=== PATIENT | male | born 1980 | race Caucasian/White ===

== ENCOUNTER 2017-03-02 11:29 | Inpatient (IN) | payer BC ==
[~2017-03-02] VITALS: Ht 188 cm; Wt 123.0 kg
[2017-03-02 12:13] LABS: BASO # 0.1 x10^3/uL (0.0-0.2); BASO % 1 % (0-3); EOS % 1 % (0-3); HEMATOCRIT 49.1 % (39.0-53.0); HEMOGLOBIN 16.5 g/dL (13.0-17.5); LYMPH # 0.9 x10^3/uL (1.0-4.8); LYMPH % 14 % (24-48); MEAN CORPUSCULAR HEMOGLOBIN 30 pg (25-35); MEAN CORPUSCULAR HGB CONC 34 g/dL (31-37); MEAN CORPUSCULAR VOLUME 88 fL (79-100); MONO % 8 % (0-9); NEUT % 76 % (31-73); PLATELET COUNT 197 x10^3/uL (140-400); RED BLOOD COUNT 5.55 x10^6/uL (4.30-5.70); RED CELL DISTRIBUTION WIDTH 13.3 % (11.5-14.5); WHITE BLOOD COUNT 6.6 x10^3/uL (4.0-11.0)
[2017-03-02] MEDS ORDERED: ONDANSETRON PF 4 MG/2 ML VIAL. IV ONE (12:15)
[2017-03-02] MEDS ORDERED: KETOROLAC TROMETHAMINE 30 MG/ML INJ. IV ONE (12:15)
[2017-03-02] MEDS ORDERED: MORPHINE SULFATE 4 MG/ML DISP.SYRIN. IV ONE (12:15)
--- NOTE | 2017-03-02 12:26 | PHYS DOC ---
Past Medical History Past Medical History: Other Additional Past Medical Histor: Gallstones. Past Surgical History: No Surgical History Alcohol Use: None Drug Use: None Adult General Chief Complaint Chief Complaint: ABDOMINAL PAIN HPI HPI Patient is a 36 year old male who presents with complaint of upper abdominal pain and vomiting. Patient was diagnosed yesterday with gallstones and discharged with pain medications and antiemetics. However the patient is not well controlled and the patient continues to vomit so he returns to the ED today. Patient denies any fevers, diarrhea, changes of the skin, chest pain, back pain. Review of Systems Review of Systems Constitutional: Denies fever or chills [] Respiratory: Denies cough or shortness of breath [] Cardiovascular: No chest pain GI: Yes abdominal pain, nausea, nonbloody vomiting. No bloody stools or diarrhea [] : Denies dysuria or hematuria [] Musculoskeletal: Denies back pain or joint pain [] Integument: Denies rash or skin lesions , or changes to her current skin Neurologic: Denies headache, focal weakness or sensory changes [] Endocrine: Denies polyuria or polydipsia [] All other systems reviewed and found to be negative unless otherwise specified. Current Medications Current Medications Current Medications Medications (Trade) Dose Ordered Sig/[facility] Start Time Stop Time Status Last Admin Dose Admin Ketorolac Tromethamine (Toradol) 30 mg 1X ONCE 03/02/17 12:15 03/02/17 12:16 DC 03/02/17 12:19 30 MG Morphine Sulfate 4 mg 1X ONCE 03/02/17 12:15 03/02/17 12:16 DC 03/02/17 12:21 4 MG Ondansetron HCl (Zofran) 4 mg 1X ONCE 03/02/17 12:15 03/02/17 12:16 DC 03/02/17 12:15 4 MG Allergies Allergies Allergies Coded Allergies Type Severity Reaction Last Updated Verified No Known Drug Allergies 03/02/17 No Physical Exam Physical Exam Constitutional: Well developed, well nourished, mild distress, non-toxic appearance. [] HENT: Normocephalic, atraumatic, bilateral external ears normal, oropharynx moist, no oral exudates, nose normal. [] Eyes: Anicteric EOMI, conjunctiva normal, no discharge. [] Neck: Normal range of motion, no tenderness, trachea midline, no stridor. [] Cardiovascular:Heart rate regular rhythm, no murmur, normal perfusion Lungs & Thorax: Bilateral breath sounds clear to auscultation, no tachypnea Abdomen: Bowel sounds normal, soft, no masses, no pulsatile masses. Tenderness in the upper abdominal area on the right side in the epigastric area without guarding or rebound Skin: Warm, dry, no erythema, no rash. No jaundice Back: Normal range of motion Extremities: No tenderness, no cyanosis, no clubbing, ROM intact, no edema. [] Neurologic: Alert and oriented X 3, normal motor function, no focal deficits noted. [] Psychologic: Affect normal, judgement normal, mood normal. [] Current Patient Data Vital Signs Vital Signs Date Time Temp Pulse Resp B/P (MAP) Pulse Ox O2 Delivery O2 Flow Rate FiO2 03/02/17 12:36 58 20 136/89 (105) 93 Room Air 03/02/17 11:41 97.8 97.8 Lab Values Laboratory Tests Test 03/02/17 11:40 White Blood Count 6.6 x10^3/uL (4.0-11.0) Red Blood Count 5.55 x10^6/uL (4.30-5.70) Hemoglobin 16.5 g/dL (13.0-17.5) Hematocrit 49.1 % (39.0-53.0) Mean Corpuscular Volume 88 fL (79-100) Mean Corpuscular Hemoglobin 30 pg (25-35) Mean Corpuscular Hemoglobin Concent 34 g/dL (31-37) Red Cell Distribution Width 13.3 % (11.5-14.5) Platelet Count 197 x10^3/uL (140-400) Neutrophils (%) (Auto) 76 % (31-73) H Lymphocytes (%) (Auto) 14 % (24-48) L Monocytes (%) (Auto) 8 % (0-9) Eosinophils (%) (Auto) 1 % (0-3) Basophils (%) (Auto) 1 % (0-3) Neutrophils # (Auto) 5.0 x10^3uL (1.8-7.7) Lymphocytes # (Auto) 0.9 x10^3/uL (1.0-4.8) L Monocytes # (Auto) 0.5 x10^3/uL (0.0-1.1) Eosinophils # (Auto) 0.1 x10^3/uL (0.0-0.7) Basophils # (Auto) 0.1 x10^3/uL (0.0-0.2) Sodium Level 138 mmol/L (136-145) Potassium Level 3.9 mmol/L (3.5-5.1) Chloride Level 101 mmol/L (98-107) Carbon Dioxide Level 23 mmol/L (21-32) Anion Gap 14 (6-14) Blood Urea Nitrogen 12 mg/dL (8-26) Creatinine 1.0 mg/dL (0.7-1.3) Estimated GFR (Cockcroft-Gault) 83.6 BUN/Creatinine Ratio 12 (6-20) Glucose Level 122 mg/dL (70-99) H Calcium Level 9.1 mg/dL (8.5-10.1) Total Bilirubin 7.9 mg/dL (0.2-1.0) H Aspartate Amino Transferase (AST) 185 U/L (15-37) H Alanine Aminotransferase (ALT) 706 U/L (16-63) H Alkaline Phosphatase 132 U/L (46-116) H Total Protein 7.8 g/dL (6.4-8.2) Albumin 4.1 g/dL (3.4-5.0) Albumin/Globulin Ratio 1.1 (1.0-1.7) Lipase 88521 U/L (73-393) H Laboratory Tests 03/02/17 11:40 Laboratory Tests 03/02/17 11:40 EKG EKG [] Radiology/Procedures Radiology/Procedures [] Course & Med Decision Making Course & Med Decision Making Pertinent Labs and Imaging studies reviewed. Discussed with patient, admitting team, surgery. [address] Cline surgery who recommends admission to hospitalist and consult with GI for ERCP prior to removal of GB. Also antibiotics. 1323 Pt in nad, pain well controlled. Dr Singh calls back and agrees to admit, Taylor de la garza. [] Dragon Disclaimer Dragon Disclaimer This electronic medical record was generated, in whole or in part, using a voice recognition dictation system. Departure Departure Impression: Primary Impression: Cholelithiasis Additional Impressions: Elevated liver enzymes Vomiting Disposition: ADMITTED INPATIENT Admitting Physician: Singh, Dinorah Condition: STABLE Referrals: NANCY HOANG MD (PCP) Problem Qualifiers Kapil ELLIS MD Mar 02, 2017 12:26
[2017-03-02 12:27] LABS: CALCIUM 9.1 mg/dL (8.5-10.1); GFR 83.6; POTASSIUM 3.9 mmol/L (3.5-5.1)
[2017-03-02 12:32] LABS: ALBUMIN 4.1 g/dL (3.4-5.0); ALBUMIN/GLOBULIN RATIO 1.1 (1.0-1.7); TOTAL BILIRUBIN 7.9 mg/dL (0.2-1.0); TOTAL PROTEIN 7.8 g/dL (6.4-8.2)
[2017-03-02] MEDS ORDERED: ACETAMINOPHEN 325 MG TABLET. PO PRN (13:30)
[2017-03-02] MEDS ORDERED: ONDANSETRON PF 4 MG/2 ML VIAL. IV PRN (13:30)
[2017-03-02] MEDS ORDERED: PIPERACILLIN/TAZOBACTAM 3.375 GM in IV NORMAL SALINE 50ML 50 ML IV ONE (13:45)
[2017-03-02] MEDS: MORPHINE SULFATE 4 MG/ML DISP.SYRIN. IV PRN ×2 (14:01→16:08)
[2017-03-02] MEDS ORDERED: MORPHINE SULFATE 4 MG/ML DISP.SYRIN. IM ONE (15:15)
--- NOTE | 2017-03-02 15:31 | PDOC2 ---
GI CONSULT Reason For Consult: need for ERCP HPI: HPI: 36 y/o male seen in ER w/ pending admission. H/o intermittent RUQ pain previously w/ quick resolution; however, has been constant and more severe since 02/24/17. Saw PCP yesterday, had labs, and was sent to [facility] for abd US which revealed gallstones, fatty liver, and CBD at 10mm. Planned for outpt eval w/ surgeon but came to [facility] ER today w/ ongoing abd pain and significant vomiting. Labs here show normal WBC, bili 7.9, AST 185, ALT 706, Alk Phos 132, lipase 86202. ER notes indicate previous discussion w/ surgery, consider ERCP before cholecystectomy. Received Zosyn x 1. Currently pain is in the epigastrium, can spread upward into chest and radiates to both sides to back. Denies hematemesis, diarrhea, constipation, hematochezia, melena. Fairly frequent heartburn/reflux, takes Tums PRN. Occasional ibuprofen use for headaches. No previous EGD or colonoscopy. No h/o liver or pancreas problems. Asks for more pain medication. PMH: PMH: per HPI, otherwise denies FH: Family History: Other (grandmother - WESLEY) Social History: Smoke: No ALCOHOL: none Drugs: None ROS: GEN: Denies fevers, chills, sweats HEENT: Denies blurred vision, sore throat CV: Denies chest pain RESP: Denies shortness of air, cough GI: Per HPI : Denies hematuria, dysuria ENDO: Denies weight changes NEURO: Denies confusion, dizziness MSK: Denies weakness, joint pain/swelling SKIN: Denies jaundice, pruritus Vitals: Vitals: Vital Signs Date Time Temp Pulse Resp B/P (MAP) Pulse Ox O2 Delivery O2 Flow Rate FiO2 03/02/17 15:10 57 96 Room Air 03/02/17 13:36 60 141/87 (105) 03/02/17 11:41 97.8 97.8 Labs: Labs: Laboratory Tests Test 03/02/17 11:40 White Blood Count 6.6 x10^3/uL (4.0-11.0) Red Blood Count 5.55 x10^6/uL (4.30-5.70) Hemoglobin 16.5 g/dL (13.0-17.5) Hematocrit 49.1 % (39.0-53.0) Mean Corpuscular Volume 88 fL (79-100) Mean Corpuscular Hemoglobin 30 pg (25-35) Mean Corpuscular Hemoglobin Concent 34 g/dL (31-37) Red Cell Distribution Width 13.3 % (11.5-14.5) Platelet Count 197 x10^3/uL (140-400) Neutrophils (%) (Auto) 76 % (31-73) Lymphocytes (%) (Auto) 14 % (24-48) Monocytes (%) (Auto) 8 % (0-9) Eosinophils (%) (Auto) 1 % (0-3) Basophils (%) (Auto) 1 % (0-3) Neutrophils # (Auto) 5.0 x10^3uL (1.8-7.7) Lymphocytes # (Auto) 0.9 x10^3/uL (1.0-4.8) Monocytes # (Auto) 0.5 x10^3/uL (0.0-1.1) Eosinophils # (Auto) 0.1 x10^3/uL (0.0-0.7) Basophils # (Auto) 0.1 x10^3/uL (0.0-0.2) Sodium Level 138 mmol/L (136-145) Potassium Level 3.9 mmol/L (3.5-5.1) Chloride Level 101 mmol/L (98-107) Carbon Dioxide Level 23 mmol/L (21-32) Anion Gap 14 (6-14) Blood Urea Nitrogen 12 mg/dL (8-26) Creatinine 1.0 mg/dL (0.7-1.3) Estimated GFR (Cockcroft-Gault) 83.6 BUN/Creatinine Ratio 12 (6-20) Glucose Level 122 mg/dL (70-99) Calcium Level 9.1 mg/dL (8.5-10.1) Total Bilirubin 7.9 mg/dL (0.2-1.0) Aspartate Amino Transf (AST/SGOT) 185 U/L (15-37) Alanine Aminotransferase (ALT/SGPT) 706 U/L (16-63) Alkaline Phosphatase 132 U/L (46-116) Total Protein 7.8 g/dL (6.4-8.2) Albumin 4.1 g/dL (3.4-5.0) Albumin/Globulin Ratio 1.1 (1.0-1.7) Lipase 80404 U/L (73-393) Allergies: Coded Allergies: No Known Drug Allergies (Unverified , 03/02/17) Medications: Current Medications Medications (Trade) Dose Ordered Sig/Vladimir Route PRN Reason Start Time Stop Time Status Last Admin Dose Admin Ketorolac Tromethamine (Toradol) 30 mg 1X ONCE IV 03/02/17 12:15 03/02/17 12:16 DC 03/02/17 12:19 Morphine Sulfate 4 mg 1X ONCE IV 03/02/17 12:15 03/02/17 12:16 DC 03/02/17 12:21 Ondansetron HCl (Zofran) 4 mg 1X ONCE IV 03/02/17 12:15 03/02/17 12:16 DC 03/02/17 12:15 Piperacillin Sod/ Tazobactam Sod 3.375 gm/Sodium Chloride 50 ml @ 100 mls/hr 1X ONCE IV 03/02/17 13:45 03/02/17 14:14 DC 03/02/17 13:50 Morphine Sulfate 4 mg PRN Q2HR PRN IV PAIN 03/02/17 13:30 03/03/17 13:29 03/02/17 14:01 Imaging: Imaging: Per HPI. PE: GEN: NAD HEENT: Atraumatic, +faint scleral icterus LUNGS: CTAB anteriorly HEART: RRR ABD: BS quiet, soft, epigastric and RUQ discomfort to light palpation EXTREMITY: No edema SKIN: No rashes NEURO/PSYCH: A & O 3 A/P: A/P: Upper abd pain w/ n/v Hyperbilirubinemia, elevated lipase Cholelithiasis, dilated CBD (10mm) -on US @ [facility] 03/01 -- D/w Dr. Plunkett - concern for choledocholithiasis, recheck labs in a.m. w/ possible ERCP w/ sphincterotomy/stone extraction tomorrow afternoon. EZE HERMOSILLO Mar 02, 2017 15:31
[2017-03-02 15:40] VITALS: BP 117/68
[2017-03-02] MEDS ORDERED: fentaNYL PF VIAL 100 MCG/2 ML VIAL IV PRN (16:45)
[2017-03-02] MEDS ORDERED: oxyCODONE IR 5 MG TABLET PO PRN (16:45)
[2017-03-02] MEDS ORDERED: SALIVA STIMULANT AGENT 44ML SPRAY BOTTLE. PO PRN (17:00)
[2017-03-02] MEDS ORDERED: KETOROLAC TROMETHAMINE 30 MG/ML INJ. IV PRN (17:00)
--- NOTE | 2017-03-02 17:01 | PDOC1 ---
History and Physical Date of Admission Date of Admission DATE: 03/02/17 TIME: 16:56 Identification/Chief Complaint Chief Complaint abd pain Problems: Source Source: Chart review, Patient History of Present Illness History of Present Illness Mr. Gomez, is a 36 y/o male admitted with acute and severe abd pain. recent intermittent RUQ pain for a few days, also worsening and more severe since . concerning labs at [facility] and US which revealed gallstones, fatty liver, and CBD at 10mm. Dr. Cline was alerted, but pt vomited and severe pain. Labs concernign for obstruction, CBD tone pain severe, 10, then 7/10 with IV pain meds no prior PMH, he works in [employer] Past Medical History Cardiovascular: No pertinent hx Pulmonary: No pertinent hx GI: No pertinent hx Heme/Onc: No pertinent hx Hepatobiliary: No pertinent hx Psych: No pertinent hx Rheumatologic: No pertinent hx Past Surgical History Past Surgical History: No pertinent history Family History Family History: No Significant Social History Smoke: No ALCOHOL: none Drugs: None Current Problem List Problem List Problems Medical Problems: (1) Cholelithiasis Status: Acute (2) Elevated liver enzymes Status: Acute (3) Vomiting Status: Acute Problems: Current Medications Current Medications Current Medications Ketorolac Tromethamine (Toradol) 30 mg 1X ONCE IV Last administered on 12:19; Start 03/02/17 at 12:15; Stop 03/02/17 at 12:16; Status DC Morphine Sulfate 4 mg 1X ONCE IV Last administered on 03/02/17 12:21; Start 03/02/17 at 12:15; Stop 03/02/17 at 12:16; Status DC Ondansetron HCl (Zofran) 4 mg 1X ONCE IV Last administered on 03/02/17 12:15 ; Start 03/02/17 at 12:15; Stop 03/02/17 at 12:16; Status DC Piperacillin Sod/ Tazobactam Sod 3.375 gm/Sodium Chloride 50 ml @ 100 mls/hr 1X ONCE IV Last administered on 03/02/17 13:50; Start 03/02/17 at 13:45; Stop 03/02/17 at 14:14; Status DC Ondansetron HCl (Zofran) 4 mg PRN Q8HRS PRN IV NAUSEA/VOMITING Last administered on 03/02/17 16:14; Start 03/02/17 at 13:30; Stop 03/03/17 at 13:29 Morphine Sulfate 4 mg PRN Q2HR PRN IV PAIN Last administered on 03/02/17 16:08 ; Start 03/02/17 at 13:30; Stop 03/03/17 at 13:29 Acetaminophen (Tylenol) 650 mg PRN Q4HRS PRN PO FEVER; Start 03/02/17 at 13:30 ; Stop 03/03/17 at 13:29 Morphine Sulfate 4 mg 1X ONCE IM ; Start 03/02/17 at 15:15; Stop 03/02/17 at 15 :16; Status DC Famotidine (Pepcid) 20 mg QHS IVP ; Start 03/02/17 at 21:00 Piperacillin Sod/ Tazobactam Sod 3.375 gm/Sodium Chloride 50 ml @ 100 mls/hr Q6HRS IV ; Start 03/02/17 at 18:00 Fentanyl Citrate (Fentanyl 2ml Vial) 50 mcg PRN Q2HR PRN IV PAIN; Start at 16:45 Oxycodone HCl (Roxicodone) 5 mg PRN Q6HRS PRN PO PAIN; Start 03/02/17 at 16:45 Allergies Allergies: Coded Allergies: No Known Drug Allergies (Unverified , 03/02/17) ROS General: YES: Appetite, No: Chills, Night Sweats, Fatigue, Malaise, Other PSYCHOLOGICAL ROS: No: Anxiety, Behavioral Disorder, Concentration difficultie , Decreased libido, Depression, Disorientation, Hallucinations, Hostility, Irritablity, Memory difficulties, Mood Swings, Obsessive thoughts, Physical abuse, Sexual abuse, Sleep disturbances, Suicidal ideation, Other Eyes: No Blurry vision, No Decreased vision, No Double vision, No Dry eyes, No Excessive tearing, No Eye Pain, No Itchy Eyes, No Loss of vision, No Photophobia , No Scotomata, No Uses contacts, No Uses glasses, No Other HEENT: No: Heacaches, Visual Changes, Hearing change, Nasal congestion, Nasal discharge, Oral lesions, Sinus pain, Sore Throat, Epistaxis, Sneezing, Snoring, Tinnitus, Vertigo, Vocal changes, Other Respiratory: No: Cough, Hemoptysis, Orthopnea, Pleuritic Pain, Shortness of breath, SOB with excertion, Sputum Changes, Stridor, Tachypnea, Wheezing, Other Cardiovascular: No Chest Pain, No Palpitations, No Orthopnea, No Paroxysmal Noc. Dyspnea, No Edema, No Lt Headedness, No Other Gastrointestinal: Yes Nausea, Yes Abdominal Pain, Yes Other (decreased stool, but less PO intake), No Vomiting, No Diarrhea, No Constipation, No Melena, No Hematochezia Genitourinary: No Dysuria, No Frequency, No Incontinence, No Hematuria, No Retention, No Discharge, No Urgency, No Pain, No Flank Pain, No Other, No , No , No , No , No , No , No Musculoskeletal: No Gait Disturbance, No Joint Pain, No Joint Stiffness, No Joint Swelling, No Muscle Pain, No Muscular Weakness, No Pain In:, No Swelling In:, No Other Neurological: No Behavorial Changes, No Bowel/Bladder ControlChng, No Confusion , No Dizziness, No Gait Disturbance, No Headaches, No Impaired Coord/balance, No Memory Loss, No Numbness/Tingling, No Seizures, No Speech Problems, No Tremors, No Visual Changes, No Weakness, No Other Skin: No Dry Skin, No Eczema, No Hair Changes, No Lumps, No Mole Changes, No Mottling, No Nail Changes, No Pruritus, No Rash, No Skin Lesion Changes, No Other, No Acne Physical Exam General: Alert, Oriented X3, Cooperative, mild distress HEENT: EOMI, Mucous membr. moist/pink Lungs: Normal air movement Heart: no gallops, no murmurs Abdomen: Normal bowel sounds, Soft (tender) Extremities: No clubbing, No edema Skin: No breakdown, No significant lesion Neuro: Sensation intact Vitals Vitals Vital Signs Date Time Temp Pulse Resp B/P (MAP) Pulse Ox O2 Delivery O2 Flow Rate FiO2 03/02/17 16:39 18 Room Air 03/02/17 15:40 97.9 76 117/68 (84) 95 97.9 Labs Labs Laboratory Tests Test 03/02/17 11:40 White Blood Count 6.6 x10^3/uL (4.0-11.0) Red Blood Count 5.55 x10^6/uL (4.30-5.70) Hemoglobin 16.5 g/dL (13.0-17.5) Hematocrit 49.1 % (39.0-53.0) Mean Corpuscular Volume 88 fL (79-100) Mean Corpuscular Hemoglobin 30 pg (25-35) Mean Corpuscular Hemoglobin Concent 34 g/dL (31-37) Red Cell Distribution Width 13.3 % (11.5-14.5) Platelet Count 197 x10^3/uL (140-400) Neutrophils (%) (Auto) 76 % (31-73) Lymphocytes (%) (Auto) 14 % (24-48) Monocytes (%) (Auto) 8 % (0-9) Eosinophils (%) (Auto) 1 % (0-3) Basophils (%) (Auto) 1 % (0-3) Neutrophils # (Auto) 5.0 x10^3uL (1.8-7.7) Lymphocytes # (Auto) 0.9 x10^3/uL (1.0-4.8) Monocytes # (Auto) 0.5 x10^3/uL (0.0-1.1) Eosinophils # (Auto) 0.1 x10^3/uL (0.0-0.7) Basophils # (Auto) 0.1 x10^3/uL (0.0-0.2) Sodium Level 138 mmol/L (136-145) Potassium Level 3.9 mmol/L (3.5-5.1) Chloride Level 101 mmol/L (98-107) Carbon Dioxide Level 23 mmol/L (21-32) Anion Gap 14 (6-14) Blood Urea Nitrogen 12 mg/dL (8-26) Creatinine 1.0 mg/dL (0.7-1.3) Estimated GFR (Cockcroft-Gault) 83.6 BUN/Creatinine Ratio 12 (6-20) Glucose Level 122 mg/dL (70-99) Calcium Level 9.1 mg/dL (8.5-10.1) Total Bilirubin 7.9 mg/dL (0.2-1.0) Aspartate Amino Transf (AST/SGOT) 185 U/L (15-37) Alanine Aminotransferase (ALT/SGPT) 706 U/L (16-63) Alkaline Phosphatase 132 U/L (46-116) Total Protein 7.8 g/dL (6.4-8.2) Albumin 4.1 g/dL (3.4-5.0) Albumin/Globulin Ratio 1.1 (1.0-1.7) Lipase 42589 U/L (73-393) Laboratory Tests Test 03/02/17 11:40 White Blood Count 6.6 x10^3/uL (4.0-11.0) Red Blood Count 5.55 x10^6/uL (4.30-5.70) Hemoglobin 16.5 g/dL (13.0-17.5) Hematocrit 49.1 % (39.0-53.0) Mean Corpuscular Volume 88 fL (79-100) Mean Corpuscular Hemoglobin 30 pg (25-35) Mean Corpuscular Hemoglobin Concent 34 g/dL (31-37) Red Cell Distribution Width 13.3 % (11.5-14.5) Platelet Count 197 x10^3/uL (140-400) Neutrophils (%) (Auto) 76 % (31-73) Lymphocytes (%) (Auto) 14 % (24-48) Monocytes (%) (Auto) 8 % (0-9) Eosinophils (%) (Auto) 1 % (0-3) Basophils (%) (Auto) 1 % (0-3) Neutrophils # (Auto) 5.0 x10^3uL (1.8-7.7) Lymphocytes # (Auto) 0.9 x10^3/uL (1.0-4.8) Monocytes # (Auto) 0.5 x10^3/uL (0.0-1.1) Eosinophils # (Auto) 0.1 x10^3/uL (0.0-0.7) Basophils # (Auto) 0.1 x10^3/uL (0.0-0.2) Sodium Level 138 mmol/L (136-145) Potassium Level 3.9 mmol/L (3.5-5.1) Chloride Level 101 mmol/L (98-107) Carbon Dioxide Level 23 mmol/L (21-32) Anion Gap 14 (6-14) Blood Urea Nitrogen 12 mg/dL (8-26) Creatinine 1.0 mg/dL (0.7-1.3) Estimated GFR (Cockcroft-Gault) 83.6 BUN/Creatinine Ratio 12 (6-20) Glucose Level 122 mg/dL (70-99) Calcium Level 9.1 mg/dL (8.5-10.1) Total Bilirubin 7.9 mg/dL (0.2-1.0) Aspartate Amino Transf (AST/SGOT) 185 U/L (15-37) Alanine Aminotransferase (ALT/SGPT) 706 U/L (16-63) Alkaline Phosphatase 132 U/L (46-116) Total Protein 7.8 g/dL (6.4-8.2) Albumin 4.1 g/dL (3.4-5.0) Albumin/Globulin Ratio 1.1 (1.0-1.7) Lipase 90374 U/L (73-393) VTE Prophylaxis Ordered VTE Prophylaxis Devices: Yes VTE Pharmacological Prophylaxi: Contraindicated Assessment/Plan Assessment/Plan Acute cholecystitis concern for choledocholithiasis, GI consult consider ERCP gen surg consult to follow obesity, BMI 34 acute abd pain, req. IV pain meds pancreatitis KRISTIAN GÓMEZ MD Mar 02, 2017 17:01
[2017-03-02] MEDS ORDERED: MORPHINE SULFATE 4 MG/ML DISP.SYRIN. IV PRN (17:15)
[2017-03-02] MEDS: POTASSIUM CL 20MEQ D5-0.45NACL 1,000 ML IV SCH (18:03)
[2017-03-02] MEDS: PIPERACILLIN/TAZOBACTAM 3.375 GM in IV NORMAL SALINE 50ML 50 ML IV SCH (18:18)
[2017-03-02 19:00] VITALS: BP 137/79
[2017-03-02] MEDS: fentaNYL PF VIAL 100 MCG/2 ML VIAL IV PRN ×2 (19:28→22:02)
[2017-03-02] MEDS ORDERED: diphenhydrAMINE 50 MG/ML VIAL IVP PRN (21:30)
[2017-03-02] MEDS: FAMOTIDINE 20 MG/2 ML VIAL IVP SCH (22:03)
[2017-03-02 23:00] VITALS: BP 129/74
--- NOTE | 2017-03-03 00:50 | ACF ---
Admission Forms Criteria GALLBLADDER OR BILE DUCT INFLAMMATION OR STONE Clinical Indications for Admission to Inpatient Care ( ho-chunk/check or initial the applicable condition/criteria) Admission is indicated for patients with ANY ONE of the following(1)(2)(3)(4)(5) (6): I. Acute cholecystitis as indicated by ALL of the following: a) Right upper quadrant pain, mass, or tenderness b) Systemic signs of inflammation indicated by ANY ONE of the following: i) Fever ii) C-reactive protein level greater than 10 mg/L (95 nmol/L) iii) White blood cell count greater than 10,000/mm3 (10 x10 9/L ) or less than 4000/mm3 (4 x10 9/L) II. Acute cholangitis as indicated by ALL of the following(9)(10): a) Systemic signs of inflammation indicated by ANY ONE of the following: i) Fever ii) C-reactive protein level greater than 10 mg/L (95 nmol/L) iii) White blood cell count greater than 10,000/mm3 (10 x109/L ) or less than 4000/mm3 (4 x109/L) b) Evidence of common bile duct disease indicated by ANY ONE of the following: [ ]i) Total serum bilirubin level greater than or equal to 2 mg/dL (34 micromoles/L) [ ]ii) Liver function test (alkaline phosphatase (ALP), r- glutamyltransferase (GGT), aspartate aminotransferase (AST), or alanine aminotransferase (ALT)) greater than 1.5 times the upper limit of normal[B] [ ]iii) Hepatobiliary imaging showing biliary dilatation or evidence of etiology (eg, stricture, stone, previously placed stent) [X]III. Inpatient admission[c] required rather than observation care (Also use Gallbladder or Bile Duct Inflammation or Stone: Observation Care as appropriate) because of ANY ONE of the following( 11): a) Common bile duct obstruction diagnosed (eg, by imaging) b) Vomiting that is severe or persistent c) Dehydration that is severe or persistent d) Hemodynamic instability [X] e) Severe pain requiring acute inpatient management f) Absent bowel sounds with complete ileus(12) g) Signs of intestinal obstruction or peritonitis[D] h) Percutaneous or open drainage (eg, abscess, biliary tract) procedures i) Other condition, treatment or monitoring requiring inpatient admission j) High fever or infection requiring inpatient admission as indicated by ANY ONE of the following (13): i) Appropriate outpatient or observation care antimicrobial Treatment. unavailable, not effective, or not feasible ii) Documented bacteremia iii) Temperature greater than 104.9 degrees F (40.5 degrees C) ( oral) iv) Temperature greater than 103.1 degrees F (39.5 degrees C) ( oral) or less than 96.8 degrees F (36 degrees C) (rectal) that does not respond to all emergency treatment measures The original [facility] content created by [facility] has been revised. The portions of the content which have been revised are identified through the use of italic text or in bold, and [facility] has neither reviewed nor approved the modified material. All other unmodified content is copyright [facility]. Please see references footnoted in the original [facility] edition 2016 Admission Criteria Met?: Yes PAULINO LOPEZ Mar 03, 2017 00:50
[2017-03-03] MEDS: PIPERACILLIN/TAZOBACTAM 3.375 GM in IV NORMAL SALINE 50ML 50 ML IV SCH ×4 (01:32→17:46)
[2017-03-03] MEDS: fentaNYL PF VIAL 100 MCG/2 ML VIAL IV PRN ×5 (01:33→15:19)
[2017-03-03 03:00] VITALS: BP 115/68
[2017-03-03] MEDS: POTASSIUM CL 20MEQ D5-0.45NACL 1,000 ML IV SCH ×3 (04:40→17:45)
[2017-03-03 04:56] LABS: BASO % 0 % (0-3); EOS % 0 % (0-3); HEMATOCRIT 45.3 % (39.0-53.0); LYMPH # 0.8 x10^3/uL (1.0-4.8); LYMPH % 11 % (24-48); MEAN CORPUSCULAR HEMOGLOBIN 31 pg (25-35); MEAN CORPUSCULAR HGB CONC 35 g/dL (31-37); MEAN CORPUSCULAR VOLUME 87 fL (79-100); MONO % 8 % (0-9); NEUT % 81 % (31-73); PLATELET COUNT 189 x10^3/uL (140-400); RED BLOOD COUNT 5.22 x10^6/uL (4.30-5.70); RED CELL DISTRIBUTION WIDTH 13.4 % (11.5-14.5); WHITE BLOOD COUNT 7.5 x10^3/uL (4.0-11.0)
[2017-03-03 05:14] LABS: ALBUMIN 3.7 g/dL (3.4-5.0); CALCIUM 8.8 mg/dL (8.5-10.1); CREATININE 1.2 mg/dL (0.7-1.3); GFR 67.8; POTASSIUM 3.9 mmol/L (3.5-5.1); TOTAL BILIRUBIN 2.8 mg/dL (0.2-1.0); TOTAL PROTEIN 7.3 g/dL (6.4-8.2)
[2017-03-03 07:00] VITALS: BP 128/79
--- NOTE | 2017-03-03 08:45 | PDOC2 ---
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 Pain does radiate to his back. Aggravated by late meals/spicy foods. He reports intermittent attacks for years, however they typically resolve in a day or so without intervention. This time significantly worse and did not improve. US at [facility] revealed cholelithiasis, was sent home with output FU. Could not wait, came to ER here Past Medical History Cardiovascular: No pertinent hx Pulmonary: No pertinent hx GI: No pertinent hx Heme/Onc: No pertinent hx Hepatobiliary: No pertinent hx Psych: No pertinent hx Rheumatologic: No pertinent hx Past Surgical History Past Surgical History: No pertinent history Family History Family History: No Significant Social History No ALCOHOL: none Drugs: None Lives: Alone Current Problem List Problem List Problems Medical Problems: (1) Cholelithiasis Status: Acute (2) Elevated liver enzymes Status: Acute (3) Vomiting Status: Acute Current Medications Current Medications Current Medications Ketorolac Tromethamine (Toradol) 30 mg 1X ONCE IV Last administered on 12:19; Start 03/02/17 at 12:15; Stop 03/02/17 at 12:16; Status DC Morphine Sulfate 4 mg 1X ONCE IV Last administered on 03/02/17 12:21; Start 03/02/17 at 12:15; Stop 03/02/17 at 12:16; Status DC Ondansetron HCl (Zofran) 4 mg 1X ONCE IV Last administered on 03/02/17 12:15 ; Start 03/02/17 at 12:15; Stop 03/02/17 at 12:16; Status DC Piperacillin Sod/ Tazobactam Sod 3.375 gm/Sodium Chloride 50 ml @ 100 mls/hr 1X ONCE IV Last administered on 03/02/17 13:50; Start 03/02/17 at 13:45; Stop 03/02/17 at 14:14; Status DC Ondansetron HCl (Zofran) 4 mg PRN Q8HRS PRN IV NAUSEA/VOMITING Last administered on 03/02/17 16:14; Start 03/02/17 at 13:30; Stop 03/03/17 at 13:29 Morphine Sulfate 4 mg PRN Q2HR PRN IV PAIN Last administered on 03/02/17 16:08 ; Start 03/02/17 at 13:30; Stop 03/02/17 at 17:02; Status DC Acetaminophen (Tylenol) 650 mg PRN Q4HRS PRN PO FEVER; Start 03/02/17 at 13:30 ; Stop 03/03/17 at 13:29 Morphine Sulfate 4 mg 1X ONCE IM ; Start 03/02/17 at 15:15; Stop 03/02/17 at 15 :16; Status DC Famotidine (Pepcid) 20 mg QHS IVP Last administered on 03/02/17 22:03; Start 03/02/17 at 21:00 Piperacillin Sod/ Tazobactam Sod 3.375 gm/Sodium Chloride 50 ml @ 100 mls/hr Q6HRS IV Last administered on 03/03/17 06:40; Start 03/02/17 at 18:00 Fentanyl Citrate (Fentanyl 2ml Vial) 50 mcg PRN Q2HR PRN IV PAIN; Start at 16:45; Stop 03/02/17 at 16:55; Status DC Oxycodone HCl (Roxicodone) 5 mg PRN Q6HRS PRN PO PAIN; Start 03/02/17 at 16:45 Fentanyl Citrate (Fentanyl 2ml Vial) 75 mcg PRN Q2HR PRN IV PAIN Last administered on 03/03/17 07:23; Start 03/02/17 at 17:00 Ketorolac Tromethamine (Toradol) 30 mg PRN Q8HRS PRN IV PAIN Last administered on 03/02/17 18:04; Start 03/02/17 at 17:00; Stop 03/07/17 at 16:59 Potassium Chloride/Dextrose/ Sod Cl 1,000 ml @ 125 mls/hr Q8H IV Last administered on 03/03/17 04:40; Start 03/02/17 at 17:30 Saliva Substitute (Biotene Moisturizing Mouth) 2 spray PRN Q15MIN PRN PO DRY MOUTH; Start 8/30/17 at 17:00 Morphine Sulfate 6 mg PRN Q2HR PRN IV PAIN; Start 03/02/17 at 17:15 Diphenhydramine HCl (Benadryl) 25 mg PRN Q6HRS PRN IVP ITCHING; Start 03/02/17 at 21:30 Allergies Allergies: Coded Allergies: No Known Drug Allergies (Unverified , 03/03/17) ROS General: YES: Chills, Appetite (loss), Other (low grade fevers ) PSYCHOLOGICAL ROS: No: Anxiety, Depression Eyes: No Blurry vision, No Double vision HEENT: No: Heacaches, Sore Throat Hematological and Lymphatic: No: Bleeding Problems, Blood Clots Respiratory: No: Cough, Shortness of breath Cardiovascular: No Chest Pain, No Palpitations Gastrointestinal: Yes Other Genitourinary: No Dysuria, No Hematuria Musculoskeletal: Yes Pain In: (back), No Joint Pain Neurological: No Confusion, No Numbness/Tingling Skin: No Pruritus, No Rash Physical Exam General: Alert, Oriented X3, Cooperative, No acute distress HEENT: PERRLA, Mucous membr. moist/pink Lungs: Clear to auscultation, Normal air movement Heart: Regular rate, Normal S1, Normal S2, No murmurs Abdomen: Soft, Other (ND, moderate epigastric tenderness, also mildy tender to LUQ and RUQ) Extremities: No clubbing, No cyanosis Skin: No rashes, No breakdown Neuro: Normal gait, Normal speech Psych/Mental Status: Mental status NL, Mood NL MUSCULOSKELETAL: No deformity, No swelling Vitals VITALS Vital Signs Date Time Temp Pulse Resp B/P (MAP) Pulse Ox O2 Delivery O2 Flow Rate FiO2 03/03/17 07:23 16 96 03/03/17 07:00 99.7 86 128/79 (95) Room Air 99.7 Labs Labs Laboratory Tests Test 03/02/17 11:40 03/03/17 04:47 White Blood Count 6.6 x10^3/uL (4.0-11.0) 7.5 x10^3/uL (4.0-11.0) Red Blood Count 5.55 x10^6/uL (4.30-5.70) 5.22 x10^6/uL (4.30-5.70) Hemoglobin 16.5 g/dL (13.0-17.5) 16.0 g/dL (13.0-17.5) Hematocrit 49.1 % (39.0-53.0) 45.3 % (39.0-53.0) Mean Corpuscular Volume 88 fL (79-100) 87 fL (79-100) Mean Corpuscular Hemoglobin 30 pg (25-35) 31 pg (25-35) Mean Corpuscular Hemoglobin Concent 34 g/dL (31-37) 35 g/dL (31-37) Red Cell Distribution Width 13.3 % (11.5-14.5) 13.4 % (11.5-14.5) Platelet Count 197 x10^3/uL (140-400) 189 x10^3/uL (140-400) Neutrophils (%) (Auto) 76 % (31-73) 81 % (31-73) Lymphocytes (%) (Auto) 14 % (24-48) 11 % (24-48) Monocytes (%) (Auto) 8 % (0-9) 8 % (0-9) Eosinophils (%) (Auto) 1 % (0-3) 0 % (0-3) Basophils (%) (Auto) 1 % (0-3) 0 % (0-3) Neutrophils # (Auto) 5.0 x10^3uL (1.8-7.7) 6.1 x10^3uL (1.8-7.7) Lymphocytes # (Auto) 0.9 x10^3/uL (1.0-4.8) 0.8 x10^3/uL (1.0-4.8) Monocytes # (Auto) 0.5 x10^3/uL (0.0-1.1) 0.6 x10^3/uL (0.0-1.1) Eosinophils # (Auto) 0.1 x10^3/uL (0.0-0.7) 0.0 x10^3/uL (0.0-0.7) Basophils # (Auto) 0.1 x10^3/uL (0.0-0.2) 0.0 x10^3/uL (0.0-0.2) Sodium Level 138 mmol/L (136-145) 139 mmol/L (136-145) Potassium Level 3.9 mmol/L (3.5-5.1) 3.9 mmol/L (3.5-5.1) Chloride Level 101 mmol/L (98-107) 102 mmol/L (98-107) Carbon Dioxide Level 23 mmol/L (21-32) 27 mmol/L (21-32) Anion Gap 14 (6-14) 10 (6-14) Blood Urea Nitrogen 12 mg/dL (8-26) 16 mg/dL (8-26) Creatinine 1.0 mg/dL (0.7-1.3) 1.2 mg/dL (0.7-1.3) Estimated GFR (Cockcroft-Gault) 83.6 67.8 BUN/Creatinine Ratio 12 (6-20) 13 (6-20) Glucose Level 122 mg/dL (70-99) 101 mg/dL (70-99) Calcium Level 9.1 mg/dL (8.5-10.1) 8.8 mg/dL (8.5-10.1) Total Bilirubin 7.9 mg/dL (0.2-1.0) 2.8 mg/dL (0.2-1.0) Aspartate Amino Transf (AST/SGOT) 185 U/L (15-37) 111 U/L (15-37) Alanine Aminotransferase (ALT/SGPT) 706 U/L (16-63) 562 U/L (16-63) Alkaline Phosphatase 132 U/L (46-116) 121 U/L (46-116) Total Protein 7.8 g/dL (6.4-8.2) 7.3 g/dL (6.4-8.2) Albumin 4.1 g/dL (3.4-5.0) 3.7 g/dL (3.4-5.0) Albumin/Globulin Ratio 1.1 (1.0-1.7) 1.0 (1.0-1.7) Lipase 30421 U/L (73-393) Laboratory Tests Test 03/02/17 11:40 03/03/17 04:47 White Blood Count 6.6 x10^3/uL (4.0-11.0) 7.5 x10^3/uL (4.0-11.0) Red Blood Count 5.55 x10^6/uL (4.30-5.70) 5.22 x10^6/uL (4.30-5.70) Hemoglobin 16.5 g/dL (13.0-17.5) 16.0 g/dL (13.0-17.5) Hematocrit 49.1 % (39.0-53.0) 45.3 % (39.0-53.0) Mean Corpuscular Volume 88 fL (79-100) 87 fL (79-100) Mean Corpuscular Hemoglobin 30 pg (25-35) 31 pg (25-35) Mean Corpuscular Hemoglobin Concent 34 g/dL (31-37) 35 g/dL (31-37) Red Cell Distribution Width 13.3 % (11.5-14.5) 13.4 % (11.5-14.5) Platelet Count 197 x10^3/uL (140-400) 189 x10^3/uL (140-400) Neutrophils (%) (Auto) 76 % (31-73) 81 % (31-73) Lymphocytes (%) (Auto) 14 % (24-48) 11 % (24-48) Monocytes (%) (Auto) 8 % (0-9) 8 % (0-9) Eosinophils (%) (Auto) 1 % (0-3) 0 % (0-3) Basophils (%) (Auto) 1 % (0-3) 0 % (0-3) Neutrophils # (Auto) 5.0 x10^3uL (1.8-7.7) 6.1 x10^3uL (1.8-7.7) Lymphocytes # (Auto) 0.9 x10^3/uL (1.0-4.8) 0.8 x10^3/uL (1.0-4.8) Monocytes # (Auto) 0.5 x10^3/uL (0.0-1.1) 0.6 x10^3/uL (0.0-1.1) Eosinophils # (Auto) 0.1 x10^3/uL (0.0-0.7) 0.0 x10^3/uL (0.0-0.7) Basophils # (Auto) 0.1 x10^3/uL (0.0-0.2) 0.0 x10^3/uL (0.0-0.2) Sodium Level 138 mmol/L (136-145) 139 mmol/L (136-145) Potassium Level 3.9 mmol/L (3.5-5.1) 3.9 mmol/L (3.5-5.1) Chloride Level 101 mmol/L (98-107) 102 mmol/L (98-107) Carbon Dioxide Level 23 mmol/L (21-32) 27 mmol/L (21-32) Anion Gap 14 (6-14) 10 (6-14) Blood Urea Nitrogen 12 mg/dL (8-26) 16 mg/dL (8-26) Creatinine 1.0 mg/dL (0.7-1.3) 1.2 mg/dL (0.7-1.3) Estimated GFR (Cockcroft-Gault) 83.6 67.8 BUN/Creatinine Ratio 12 (6-20) 13 (6-20) Glucose Level 122 mg/dL (70-99) 101 mg/dL (70-99) Calcium Level 9.1 mg/dL (8.5-10.1) 8.8 mg/dL (8.5-10.1) Total Bilirubin 7.9 mg/dL (0.2-1.0) 2.8 mg/dL (0.2-1.0) Aspartate Amino Transf (AST/SGOT) 185 U/L (15-37) 111 U/L (15-37) Alanine Aminotransferase (ALT/SGPT) 706 U/L (16-63) 562 U/L (16-63) Alkaline Phosphatase 132 U/L (46-116) 121 U/L (46-116) Total Protein 7.8 g/dL (6.4-8.2) 7.3 g/dL (6.4-8.2) Albumin 4.1 g/dL (3.4-5.0) 3.7 g/dL (3.4-5.0) Albumin/Globulin Ratio 1.1 (1.0-1.7) 1.0 (1.0-1.7) Lipase 22705 U/L (73-393) Images Images [facility] US reviewed Assessment/Plan Assessment/Plan gallstone pancreatitis elevated LFTS, improved today admission lipase [id number] Will review with GI, if no plans--will check CT abd/pelvis today to evaluate his pancreatitis NPO, bowel rest, hydration, serial labs/exams lap hay once pancreatitis resolved LINDA COKER MD 03/03/17 1537: CONSULT Allergies Allergies: Coded Allergies: No Known Drug Allergies (Unverified , 03/03/17) Assessment/Plan Assessment/Plan Agree with above MELA FERNÁNDEZ APRN Mar 03, 2017 08:45 LINDA COKER MD Mar 03, 2017 15:37
[2017-03-03 11:00] VITALS: BP 115/72
[2017-03-03 11:59] LABS: INR 0.9 (0.8-1.1)
[2017-03-03] MEDS ORDERED: IV RINGERS,LACTATED 1000ML 1,000 ML IV SCH (12:30)
--- NOTE | 2017-03-03 12:44 | PDOC ---
PROGRESS NOTES Chief Complaint Chief Complaint abdominal pain Acute cholecystitis w/ concern for choledocholithiasis, GI consult acute pancreatitis hyperbili, much improved since admit obesity, BMI 34 History of Present Illness History of Present Illness GI following, plan ERCP, pending those results, my benefit from hay, surg following, pt much improved Vitals Vitals Vital Signs Date Time Temp Pulse Resp B/P (MAP) Pulse Ox O2 Delivery O2 Flow Rate FiO2 03/03/17 12:15 97 73 18 96 97.0 03/03/17 11:00 115/72 (86) Room Air Physical Exam General: Alert, Oriented X3, Cooperative, No acute distress Heart: Regular rate, Normal S1, Normal S2, No murmurs Abdomen: Soft, Other (ND, moderate epigastric tenderness, also mildy tender to LUQ and RUQ) Extremities: No clubbing, No cyanosis Skin: No rashes, No breakdown Labs LABS Laboratory Tests Test 03/03/17 04:47 03/03/17 11:35 White Blood Count 7.5 x10^3/uL (4.0-11.0) Red Blood Count 5.22 x10^6/uL (4.30-5.70) Hemoglobin 16.0 g/dL (13.0-17.5) Hematocrit 45.3 % (39.0-53.0) Mean Corpuscular Volume 87 fL (79-100) Mean Corpuscular Hemoglobin 31 pg (25-35) Mean Corpuscular Hemoglobin Concent 35 g/dL (31-37) Red Cell Distribution Width 13.4 % (11.5-14.5) Platelet Count 189 x10^3/uL (140-400) Neutrophils (%) (Auto) 81 % (31-73) Lymphocytes (%) (Auto) 11 % (24-48) Monocytes (%) (Auto) 8 % (0-9) Eosinophils (%) (Auto) 0 % (0-3) Basophils (%) (Auto) 0 % (0-3) Neutrophils # (Auto) 6.1 x10^3uL (1.8-7.7) Lymphocytes # (Auto) 0.8 x10^3/uL (1.0-4.8) Monocytes # (Auto) 0.6 x10^3/uL (0.0-1.1) Eosinophils # (Auto) 0.0 x10^3/uL (0.0-0.7) Basophils # (Auto) 0.0 x10^3/uL (0.0-0.2) Sodium Level 139 mmol/L (136-145) Potassium Level 3.9 mmol/L (3.5-5.1) Chloride Level 102 mmol/L (98-107) Carbon Dioxide Level 27 mmol/L (21-32) Anion Gap 10 (6-14) Blood Urea Nitrogen 16 mg/dL (8-26) Creatinine 1.2 mg/dL (0.7-1.3) Estimated GFR (Cockcroft-Gault) 67.8 BUN/Creatinine Ratio 13 (6-20) Glucose Level 101 mg/dL (70-99) Calcium Level 8.8 mg/dL (8.5-10.1) Total Bilirubin 2.8 mg/dL (0.2-1.0) Aspartate Amino Transf (AST/SGOT) 111 U/L (15-37) Alanine Aminotransferase (ALT/SGPT) 562 U/L (16-63) Alkaline Phosphatase 121 U/L (46-116) Total Protein 7.3 g/dL (6.4-8.2) Albumin 3.7 g/dL (3.4-5.0) Albumin/Globulin Ratio 1.0 (1.0-1.7) Lipase 4611 U/L (73-393) Prothrombin Time 12.0 SEC (11.7-14.0) Prothromb Time International Ratio 0.9 (0.8-1.1) Review of Systems Review of Systems feels improved slept some pain much better Assessment and Plan Assessmemt and Plan Problems Medical Problems: (1) Cholelithiasis Status: Acute (2) Elevated liver enzymes Status: Acute (3) Vomiting Status: Acute Problems: Comment Review of Relevant I have reviewed the following items willem (where applicable) has been applied. Labs Laboratory Tests Test 03/02/17 11:40 03/03/17 04:47 03/03/17 11:35 White Blood Count 6.6 x10^3/uL (4.0-11.0) 7.5 x10^3/uL (4.0-11.0) Red Blood Count 5.55 x10^6/uL (4.30-5.70) 5.22 x10^6/uL (4.30-5.70) Hemoglobin 16.5 g/dL (13.0-17.5) 16.0 g/dL (13.0-17.5) Hematocrit 49.1 % (39.0-53.0) 45.3 % (39.0-53.0) Mean Corpuscular Volume 88 fL (79-100) 87 fL (79-100) Mean Corpuscular Hemoglobin 30 pg (25-35) 31 pg (25-35) Mean Corpuscular Hemoglobin Concent 34 g/dL (31-37) 35 g/dL (31-37) Red Cell Distribution Width 13.3 % (11.5-14.5) 13.4 % (11.5-14.5) Platelet Count 197 x10^3/uL (140-400) 189 x10^3/uL (140-400) Neutrophils (%) (Auto) 76 % (31-73) 81 % (31-73) Lymphocytes (%) (Auto) 14 % (24-48) 11 % (24-48) Monocytes (%) (Auto) 8 % (0-9) 8 % (0-9) Eosinophils (%) (Auto) 1 % (0-3) 0 % (0-3) Basophils (%) (Auto) 1 % (0-3) 0 % (0-3) Neutrophils # (Auto) 5.0 x10^3uL (1.8-7.7) 6.1 x10^3uL (1.8-7.7) Lymphocytes # (Auto) 0.9 x10^3/uL (1.0-4.8) 0.8 x10^3/uL (1.0-4.8) Monocytes # (Auto) 0.5 x10^3/uL (0.0-1.1) 0.6 x10^3/uL (0.0-1.1) Eosinophils # (Auto) 0.1 x10^3/uL (0.0-0.7) 0.0 x10^3/uL (0.0-0.7) Basophils # (Auto) 0.1 x10^3/uL (0.0-0.2) 0.0 x10^3/uL (0.0-0.2) Sodium Level 138 mmol/L (136-145) 139 mmol/L (136-145) Potassium Level 3.9 mmol/L (3.5-5.1) 3.9 mmol/L (3.5-5.1) Chloride Level 101 mmol/L (98-107) 102 mmol/L (98-107) Carbon Dioxide Level 23 mmol/L (21-32) 27 mmol/L (21-32) Anion Gap 14 (6-14) 10 (6-14) Blood Urea Nitrogen 12 mg/dL (8-26) 16 mg/dL (8-26) Creatinine 1.0 mg/dL (0.7-1.3) 1.2 mg/dL (0.7-1.3) Estimated GFR (Cockcroft-Gault) 83.6 67.8 BUN/Creatinine Ratio 12 (6-20) 13 (6-20) Glucose Level 122 mg/dL (70-99) 101 mg/dL (70-99) Calcium Level 9.1 mg/dL (8.5-10.1) 8.8 mg/dL (8.5-10.1) Total Bilirubin 7.9 mg/dL (0.2-1.0) 2.8 mg/dL (0.2-1.0) Aspartate Amino Transf (AST/SGOT) 185 U/L (15-37) 111 U/L (15-37) Alanine Aminotransferase (ALT/SGPT) 706 U/L (16-63) 562 U/L (16-63) Alkaline Phosphatase 132 U/L (46-116) 121 U/L (46-116) Total Protein 7.8 g/dL (6.4-8.2) 7.3 g/dL (6.4-8.2) Albumin 4.1 g/dL (3.4-5.0) 3.7 g/dL (3.4-5.0) Albumin/Globulin Ratio 1.1 (1.0-1.7) 1.0 (1.0-1.7) Lipase 71786 U/L (73-393) 4611 U/L (73-393) Prothrombin Time 12.0 SEC (11.7-14.0) Prothromb Time International Ratio 0.9 (0.8-1.1) Laboratory Tests Test 03/03/17 04:47 03/03/17 11:35 White Blood Count 7.5 x10^3/uL (4.0-11.0) Red Blood Count 5.22 x10^6/uL (4.30-5.70) Hemoglobin 16.0 g/dL (13.0-17.5) Hematocrit 45.3 % (39.0-53.0) Mean Corpuscular Volume 87 fL (79-100) Mean Corpuscular Hemoglobin 31 pg (25-35) Mean Corpuscular Hemoglobin Concent 35 g/dL (31-37) Red Cell Distribution Width 13.4 % (11.5-14.5) Platelet Count 189 x10^3/uL (140-400) Neutrophils (%) (Auto) 81 % (31-73) Lymphocytes (%) (Auto) 11 % (24-48) Monocytes (%) (Auto) 8 % (0-9) Eosinophils (%) (Auto) 0 % (0-3) Basophils (%) (Auto) 0 % (0-3) Neutrophils # (Auto) 6.1 x10^3uL (1.8-7.7) Lymphocytes # (Auto) 0.8 x10^3/uL (1.0-4.8) Monocytes # (Auto) 0.6 x10^3/uL (0.0-1.1) Eosinophils # (Auto) 0.0 x10^3/uL (0.0-0.7) Basophils # (Auto) 0.0 x10^3/uL (0.0-0.2) Sodium Level 139 mmol/L (136-145) Potassium Level 3.9 mmol/L (3.5-5.1) Chloride Level 102 mmol/L (98-107) Carbon Dioxide Level 27 mmol/L (21-32) Anion Gap 10 (6-14) Blood Urea Nitrogen 16 mg/dL (8-26) Creatinine 1.2 mg/dL (0.7-1.3) Estimated GFR (Cockcroft-Gault) 67.8 BUN/Creatinine Ratio 13 (6-20) Glucose Level 101 mg/dL (70-99) Calcium Level 8.8 mg/dL (8.5-10.1) Total Bilirubin 2.8 mg/dL (0.2-1.0) Aspartate Amino Transf (AST/SGOT) 111 U/L (15-37) Alanine Aminotransferase (ALT/SGPT) 562 U/L (16-63) Alkaline Phosphatase 121 U/L (46-116) Total Protein 7.3 g/dL (6.4-8.2) Albumin 3.7 g/dL (3.4-5.0) Albumin/Globulin Ratio 1.0 (1.0-1.7) Lipase 4611 U/L (73-393) Prothrombin Time 12.0 SEC (11.7-14.0) Prothromb Time International Ratio 0.9 (0.8-1.1) Medications Current Medications Ketorolac Tromethamine (Toradol) 30 mg 1X ONCE IV Last administered on 12:19; Start 03/02/17 at 12:15; Stop 03/02/17 at 12:16; Status DC Morphine Sulfate 4 mg 1X ONCE IV Last administered on 03/02/17 12:21; Start 03/02/17 at 12:15; Stop 03/02/17 at 12:16; Status DC Ondansetron HCl (Zofran) 4 mg 1X ONCE IV Last administered on 03/02/17 12:15 ; Start 03/02/17 at 12:15; Stop 03/02/17 at 12:16; Status DC Piperacillin Sod/ Tazobactam Sod 3.375 gm/Sodium Chloride 50 ml @ 100 mls/hr 1X ONCE IV Last administered on 03/02/17 13:50; Start 03/02/17 at 13:45; Stop 03/02/17 at 14:14; Status DC Ondansetron HCl (Zofran) 4 mg PRN Q8HRS PRN IV NAUSEA/VOMITING Last administered on 03/02/17 16:14; Start 03/02/17 at 13:30; Stop 03/03/17 at 13:29 Morphine Sulfate 4 mg PRN Q2HR PRN IV PAIN Last administered on 03/02/17 16:08 ; Start 03/02/17 at 13:30; Stop 03/02/17 at 17:02; Status DC Acetaminophen (Tylenol) 650 mg PRN Q4HRS PRN PO FEVER; Start 03/02/17 at 13:30 ; Stop 03/03/17 at 13:29 Morphine Sulfate 4 mg 1X ONCE IM ; Start 03/02/17 at 15:15; Stop 03/02/17 at 15 :16; Status DC Famotidine (Pepcid) 20 mg QHS IVP Last administered on 03/02/17 22:03; Start 03/02/17 at 21:00 Piperacillin Sod/ Tazobactam Sod 3.375 gm/Sodium Chloride 50 ml @ 100 mls/hr Q6HRS IV Last administered on 03/03/17 11:53; Start 03/02/17 at 18:00 Fentanyl Citrate (Fentanyl 2ml Vial) 50 mcg PRN Q2HR PRN IV PAIN; Start at 16:45; Stop 03/02/17 at 16:55; Status DC Oxycodone HCl (Roxicodone) 5 mg PRN Q6HRS PRN PO PAIN; Start 03/02/17 at 16:45 Fentanyl Citrate (Fentanyl 2ml Vial) 75 mcg PRN Q2HR PRN IV PAIN Last administered on 03/03/17 11:58; Start 03/02/17 at 17:00 Ketorolac Tromethamine (Toradol) 30 mg PRN Q8HRS PRN IV PAIN Last administered on 03/02/17 18:04; Start 03/02/17 at 17:00; Stop 03/07/17 at 16:59 Potassium Chloride/Dextrose/ Sod Cl 1,000 ml @ 125 mls/hr Q8H IV Last administered on 03/03/17 04:40; Start 03/02/17 at 17:30 Saliva Substitute (Biotene Moisturizing Mouth) 2 spray PRN Q15MIN PRN PO DRY MOUTH; Start 03/02/17 at 17:00 Morphine Sulfate 6 mg PRN Q2HR PRN IV PAIN; Start 03/02/17 at 17:15 Diphenhydramine HCl (Benadryl) 25 mg PRN Q6HRS PRN IVP ITCHING; Start 03/02/17 at 21:30 Ringer's Solution 1,000 ml @ 75 mls/hr [id number] IV ; Start 03/03/17 at 12:30 Vitals/I & O Vital Sign - Last 24 Hours 03/02/17 03/02/17 03/02/17 03/02/17 12:51 13:06 13:36 14:01 Pulse 56 60 Resp 16 18 18 14 B/P (MAP) 137/89 (105) 141/87 (105) Pulse Ox 95 94 96 97 O2 Delivery Room Air Room Air Room Air Room Air 03/02/17 03/02/17 03/02/17 03/02/17 14:06 14:36 15:06 15:10 Pulse 70 62 68 Resp 18 18 18 B/P (MAP) 133/82 (99) 146/97 (113) 152/81 (104) Pulse Ox 97 97 96 96 O2 Delivery Room Air Room Air Room Air 03/02/17 03/02/17 03/02/17 03/02/17 15:15 15:40 15:40 16:08 Temp 97.9 97.9 97.9 97.9 Pulse 76 76 Resp 16 18 18 16 B/P (MAP) 117/68 (84) 117/68 (84) Pulse Ox 95 95 95 O2 Delivery Room Air Room Air Room Air 03/02/17 03/02/17 03/02/17 03/02/17 16:39 19:00 19:28 22:02 Temp 98.1 98.1 Pulse 71 Resp 18 18 16 16 B/P (MAP) 137/79 (98) Pulse Ox 95 95 95 O2 Delivery Room Air Room Air 03/02/17 03/03/17 03/03/17 03/03/17 23:00 01:33 02:03 03:00 Temp 98.4 99.3 98.4 99.3 Pulse 76 74 Resp 18 16 16 18 B/P (MAP) 129/74 (92) 115/68 (84) Pulse Ox 96 96 96 96 O2 Delivery Room Air Room Air 03/03/17 03/03/17 03/03/17 03/03/17 07:00 07:23 09:57 11:00 Temp 99.7 98.6 99.7 98.6 Pulse 86 75 Resp 18 16 22 18 B/P (MAP) 128/79 (95) 115/72 (86) Pulse Ox 94 96 100 94 O2 Delivery Room Air Room Air 03/03/17 03/03/17 11:58 12:15 Temp 97 97.0 Pulse 73 Resp 18 18 Pulse Ox 96 KRISTIAN GÓMEZ MD Mar 03, 2017 12:44
[2017-03-03] MEDS ORDERED: IOHEXOL 300 MG/ML 100ML VIAL. ONE (13:00)
[2017-03-03] MEDS ORDERED: PROPOFOL 20 ML IV ONE (13:06)
[2017-03-03] MEDS ORDERED: SUCCINYLCHOLINE 200 MG/10 ML VIAL. ONE (13:13)
[2017-03-03] MEDS ORDERED: LIDOCAINE 2% PF Vial for OR 5 ML VIAL. ONE (13:13)
[2017-03-03] MEDS ORDERED: DEXAMETHASONE SOD PHOS 4 MG/ML VIAL ONE (13:28)
[2017-03-03] MEDS ORDERED: IOHEXOL 350 MG/ML 50 ML VIAL. IV ONE (13:35)
--- NOTE | 2017-03-03 13:43 | PDOC4 ---
Operative Note Operative Note ERCP Meds Propofol per anesthesia/[facility] Pre-op dx Jaundice/abnl Ct scan/Pancreatitis Post-op dx normal CBD without retained filling defects/stones Plan serial enzymes lap hay once pancreatitis resolved LINDA LAZARO MD Mar 03, 2017 13:43
[2017-03-03 15:00] VITALS: BP 133/81
--- NOTE | 2017-03-03 15:19 | RAD ---
Exam performed: ERCP. History: Hyperbilirubinemia, dilated common bile duct. Date of service: 03/03/17. Comparison: None available Discussion: History intraoperative C-arm radiographic images are obtained during ERCP. The images demonstrate placement of a wire in the common bile duct. Contrast was used for localization. A total fluoroscopy time of 1 minute 39 seconds was utilized. Correlate with procedure details. Impression: See discussion above
[2017-03-03] MEDS ORDERED: ONDANSETRON PF 4 MG/2 ML VIAL. IV PRN (15:30)
[2017-03-03 19:15] VITALS: BP 133/78
[2017-03-03] MEDS: FAMOTIDINE 20 MG/2 ML VIAL IVP SCH (21:05)
[2017-03-03 22:43] VITALS: BP 103/60
[2017-03-04] MEDS: PIPERACILLIN/TAZOBACTAM 3.375 GM in IV NORMAL SALINE 50ML 50 ML IV SCH ×4 (00:01→17:09)
[2017-03-04] MEDS: fentaNYL PF VIAL 100 MCG/2 ML VIAL IV PRN ×4 (02:55→19:31)
[2017-03-04] MEDS: POTASSIUM CL 20MEQ D5-0.45NACL 1,000 ML IV SCH ×4 (02:57→21:30)
[2017-03-04 03:58] VITALS: BP 129/80
[2017-03-04 06:34] LABS: ALBUMIN 3.3 g/dL (3.4-5.0); ALBUMIN/GLOBULIN RATIO 0.9 (1.0-1.7); CALCIUM 8.9 mg/dL (8.5-10.1); CREATININE 1.1 mg/dL (0.7-1.3); GFR 74.9; POTASSIUM 4.2 mmol/L (3.5-5.1); TOTAL BILIRUBIN 1.9 mg/dL (0.2-1.0); TOTAL PROTEIN 7.1 g/dL (6.4-8.2)
[2017-03-04 07:00] VITALS: BP 134/76
[2017-03-04] MEDS ORDERED: IOHEXOL 300 MG/ML 75 ML VIAL IV ONE (07:30)
[2017-03-04] MEDS ORDERED: CONTRAST GIVEN MC PRN (07:30)
[2017-03-04] MEDS ORDERED: IOHEXOL 240 MG/ML 50ML VIAL. PO ONE (07:30)
--- NOTE | 2017-03-04 09:17 | PDOC ---
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 03/04/17 0917: SURGICAL PROGRESS NOTE Subjective less pain mostly epigastric no n/v Vital Signs Vital Signs Date Time Temp Pulse Resp B/P (MAP) Pulse Ox O2 Delivery O2 Flow Rate FiO2 03/04/17 08:00 Room Air 03/04/17 07:00 98.1 71 18 134/76 (95) 97 98.1 03/03/17 14:04 2.0 General: Alert, Oriented X3, Cooperative, No acute distress Abdomen: Soft Extremities: Other (ND, epigastric ttp, no significant LUQ TTP) Labs Laboratory Tests Test 03/02/17 11:40 03/03/17 04:47 03/03/17 11:35 03/04/17 05:20 White Blood Count 6.6 x10^3/uL (4.0-11.0) 7.5 x10^3/uL (4.0-11.0) Red Blood Count 5.55 x10^6/uL (4.30-5.70) 5.22 x10^6/uL (4.30-5.70) Hemoglobin 16.5 g/dL (13.0-17.5) 16.0 g/dL (13.0-17.5) Hematocrit 49.1 % (39.0-53.0) 45.3 % (39.0-53.0) Mean Corpuscular Volume 88 fL (79-100) 87 fL (79-100) Mean Corpuscular Hemoglobin 30 pg (25-35) 31 pg (25-35) Mean Corpuscular Hemoglobin Concent 34 g/dL (31-37) 35 g/dL (31-37) Red Cell Distribution Width 13.3 % (11.5-14.5) 13.4 % (11.5-14.5) Platelet Count 197 x10^3/uL (140-400) 189 x10^3/uL (140-400) Neutrophils (%) (Auto) 76 % (31-73) 81 % (31-73) Lymphocytes (%) (Auto) 14 % (24-48) 11 % (24-48) Monocytes (%) (Auto) 8 % (0-9) 8 % (0-9) Eosinophils (%) (Auto) 1 % (0-3) 0 % (0-3) Basophils (%) (Auto) 1 % (0-3) 0 % (0-3) Neutrophils # (Auto) 5.0 x10^3uL (1.8-7.7) 6.1 x10^3uL (1.8-7.7) Lymphocytes # (Auto) 0.9 x10^3/uL (1.0-4.8) 0.8 x10^3/uL (1.0-4.8) Monocytes # (Auto) 0.5 x10^3/uL (0.0-1.1) 0.6 x10^3/uL (0.0-1.1) Eosinophils # (Auto) 0.1 x10^3/uL (0.0-0.7) 0.0 x10^3/uL (0.0-0.7) Basophils # (Auto) 0.1 x10^3/uL (0.0-0.2) 0.0 x10^3/uL (0.0-0.2) Sodium Level 138 mmol/L (136-145) 139 mmol/L (136-145) 137 mmol/L (136-145) Potassium Level 3.9 mmol/L (3.5-5.1) 3.9 mmol/L (3.5-5.1) 4.2 mmol/L (3.5-5.1) Chloride Level 101 mmol/L (98-107) 102 mmol/L (98-107) 101 mmol/L (98-107) Carbon Dioxide Level 23 mmol/L (21-32) 27 mmol/L (21-32) 29 mmol/L (21-32) Anion Gap 14 (6-14) 10 (6-14) 7 (6-14) Blood Urea Nitrogen 12 mg/dL (8-26) 16 mg/dL (8-26) 15 mg/dL (8-26) Creatinine 1.0 mg/dL (0.7-1.3) 1.2 mg/dL (0.7-1.3) 1.1 mg/dL (0.7-1.3) Estimated GFR (Cockcroft-Gault) 83.6 67.8 74.9 BUN/Creatinine Ratio 12 (6-20) 13 (6-20) 14 (6-20) Glucose Level 122 mg/dL (70-99) 101 mg/dL (70-99) 107 mg/dL (70-99) Calcium Level 9.1 mg/dL (8.5-10.1) 8.8 mg/dL (8.5-10.1) 8.9 mg/dL (8.5-10.1) Total Bilirubin 7.9 mg/dL (0.2-1.0) 2.8 mg/dL (0.2-1.0) 1.9 mg/dL (0.2-1.0) Aspartate Amino Transf (AST/SGOT) 185 U/L (15-37) 111 U/L (15-37) 70 U/L (15-37) Alanine Aminotransferase (ALT/SGPT) 706 U/L (16-63) 562 U/L (16-63) 383 U/L (16-63) Alkaline Phosphatase 132 U/L (46-116) 121 U/L (46-116) 102 U/L (46-116) Total Protein 7.8 g/dL (6.4-8.2) 7.3 g/dL (6.4-8.2) 7.1 g/dL (6.4-8.2) Albumin 4.1 g/dL (3.4-5.0) 3.7 g/dL (3.4-5.0) 3.3 g/dL (3.4-5.0) Albumin/Globulin Ratio 1.1 (1.0-1.7) 1.0 (1.0-1.7) 0.9 (1.0-1.7) Lipase 56708 U/L (73-393) 4611 U/L (73-393) 760 U/L (73-393) Prothrombin Time 12.0 SEC (11.7-14.0) Prothromb Time International Ratio 0.9 (0.8-1.1) Amylase Level 129 U/L (25-115) Laboratory Tests Test 03/03/17 11:35 03/04/17 05:20 Prothrombin Time 12.0 SEC (11.7-14.0) Prothromb Time International Ratio 0.9 (0.8-1.1) Sodium Level 137 mmol/L (136-145) Potassium Level 4.2 mmol/L (3.5-5.1) Chloride Level 101 mmol/L (98-107) Carbon Dioxide Level 29 mmol/L (21-32) Anion Gap 7 (6-14) Blood Urea Nitrogen 15 mg/dL (8-26) Creatinine 1.1 mg/dL (0.7-1.3) Estimated GFR (Cockcroft-Gault) 74.9 BUN/Creatinine Ratio 14 (6-20) Glucose Level 107 mg/dL (70-99) Calcium Level 8.9 mg/dL (8.5-10.1) Total Bilirubin 1.9 mg/dL (0.2-1.0) Aspartate Amino Transf (AST/SGOT) 70 U/L (15-37) Alanine Aminotransferase (ALT/SGPT) 383 U/L (16-63) Alkaline Phosphatase 102 U/L (46-116) Total Protein 7.1 g/dL (6.4-8.2) Albumin 3.3 g/dL (3.4-5.0) Albumin/Globulin Ratio 0.9 (1.0-1.7) Amylase Level 129 U/L (25-115) Lipase 760 U/L (73-393) Problem List Problems Medical Problems: (1) Cholelithiasis Status: Acute (2) Elevated liver enzymes Status: Acute (3) Vomiting Status: Acute Assessment/Plan gs pancreatitis labs improving, pain improving normal ERCP CT pending, will help determine timing of lap hay Problems: LINDA COKER MD 03/04/17 1044: SURGICAL PROGRESS NOTE Assessment/Plan Clinical improvement, labs improving; CT without pancreatic inflammatory changes; plan lap hay tomorrow AM if continues to improve Problems: MELA FERNÁNDEZ APRN Mar 04, 2017 09:17 LINDA COKER MD Mar 04, 2017 10:44
--- NOTE | 2017-03-04 09:33 | RAD ---
Exam performed: CT scan of the abdomen and pelvis with contrast Clinical Indication:Gallstone pancreatitis, abdominal pain Date of Service:03/04/17 no previous exams are available for comparison Technique: Contiguous helical acquisitions are obtained from the lung bases to the pelvis during intravenous administration of [75 cc of Omnipaque 300]. In addition oral contrast was also given. Sagittal and coronal reformatted images were obtained and reviewed. CT abdomen findings: The lung bases straight bibasal atelectasis. The visualized heart is normal. The liver and spleen appears unremarkable. Pancreas is unremarkable. No peripancreatic inflammatory changes are seen. Cholelithiasis Both adrenal glands and bilateral kidneys appear normal with symmetric excretion of contrast via both kidneys. Left renal cyst. The small bowel loops appear nondilated and unremarkable. There is no retroperitoneal lymphadenopathy or mass lesions. No bowel related inflammatory stranding is noted. No obvious stranding is seen in the pericecal region. CT pelvis findings: The pelvic bowel loops are nondilated and unremarkable. Sigmoid diverticulosis without acute diverticulitis. The urinary bladder is decompressed, however normal . No free fluid. Interrogation of bone windows demonstrates spondylotic changes and degenerative disc disease at L5-S1. Sagittal and coronal reformatted images were obtained and reviewed which demonstrate no additional findings. Impression abdomen and pelvis : 1. Cholelithiasis. No convincing evidence of acute peritonitis noted. 2. Sigmoid diverticulosis without acute diverticulitis. 3. Left renal cyst PQRS Compliance Statement: One or more of the following individualized dose reduction techniques were utilized for this examination: 1. Automated exposure control 2. Adjustment of the mA and/or kV according to patient size 3. Use of iterative reconstruction technique :
--- NOTE | 2017-03-04 09:48 | PDOC ---
Subjective: Subjective: Less pain, feeling better. Hoping to have surgery soon. Objective: Vital Signs: Vital Signs Date Time Temp Pulse Resp B/P (MAP) Pulse Ox O2 Delivery O2 Flow Rate FiO2 03/04/17 08:00 Room Air 03/04/17 07:00 98.1 71 18 134/76 (95) 97 98.1 03/03/17 14:04 2.0 Labs: Laboratory Tests Test 03/03/17 11:35 03/04/17 05:20 Prothrombin Time 12.0 SEC Prothromb Time International Ratio 0.9 Sodium Level 137 mmol/L Potassium Level 4.2 mmol/L Chloride Level 101 mmol/L Carbon Dioxide Level 29 mmol/L Anion Gap 7 Blood Urea Nitrogen 15 mg/dL Creatinine 1.1 mg/dL Estimated GFR (Cockcroft-Gault) 74.9 BUN/Creatinine Ratio 14 Glucose Level 107 mg/dL Calcium Level 8.9 mg/dL Total Bilirubin 1.9 mg/dL Aspartate Amino Transf (AST/SGOT) 70 U/L Alanine Aminotransferase (ALT/SGPT) 383 U/L Alkaline Phosphatase 102 U/L Total Protein 7.1 g/dL Albumin 3.3 g/dL Albumin/Globulin Ratio 0.9 Amylase Level 129 U/L Lipase 760 U/L Imaging: CT A/P 03/04/17 CT abdomen findings: The lung bases straight bibasal atelectasis. The visualized heart is normal. The liver and spleen appears unremarkable. Pancreas is unremarkable. No peripancreatic inflammatory changes are seen. Cholelithiasis Both adrenal glands and bilateral kidneys appear normal with symmetric excretion of contrast via both kidneys. Left renal cyst. The small bowel loops appear nondilated and unremarkable. There is no retroperitoneal lymphadenopathy or mass lesions. No bowel related inflammatory stranding is noted. No obvious stranding is seen in the pericecal region. CT pelvis findings: The pelvic bowel loops are nondilated and unremarkable. Sigmoid diverticulosis without acute diverticulitis. The urinary bladder is decompressed, however normal . No free fluid. Interrogation of bone windows demonstrates spondylotic changes and degenerative disc disease at L5-S1. Sagittal and coronal reformatted images were obtained and reviewed which demonstrate no additional findings. Impression abdomen and pelvis : 1. Cholelithiasis. No convincing evidence of acute peritonitis noted. 2. Sigmoid diverticulosis without acute diverticulitis. 3. Left renal cyst. ERCP 03/03/17 normal CBD without retained filling defects/stones PE: GEN: NAD LUNGS: CTAB HEART: RRR ABD: much less tender, BS+, soft NEURO/PSYCH: A & O 3 A/P: Gallstone pancreatitis -upper abd pain improved, vomiting resolved -LFTs and lipase significantly improved -normal pancreas on CT -normal ERCP -- Improved. Will defer diet to surgery. EZE HERMOSILLO Mar 04, 2017 09:48
[2017-03-04 11:06] VITALS: BP 118/70
--- NOTE | 2017-03-04 12:07 | PDOC ---
PROGRESS NOTES Chief Complaint Chief Complaint Choledocholithiasis with pancreatitis PMH: Obesity, BMI 34 History of Present Illness History of Present Illness Pt laying in bed, states he is feeling better, asking when he will be able to have his cholecystectomy Spoke with Dr. Cline, earliest timeline for cholecystectomy would be tomorrow , CT report pending, wants to ensure pancreas inflammation down. Lipase now 760, was [id number] on admission Amylase now 129 Vitals Vitals Vital Signs Date Time Temp Pulse Resp B/P (MAP) Pulse Ox O2 Delivery O2 Flow Rate FiO2 03/04/17 11:06 99.0 63 18 118/70 (86) 95 Room Air 99.0 03/03/17 14:04 2.0 Physical Exam General: Alert, Oriented X3, Cooperative, No acute distress Heart: Regular rate, Normal S1, Normal S2, No murmurs Lungs: Clear, Other (no crackles, no wheezes) Abdomen: Soft, Other (normal appearing abdomen, no bruising) Extremities: No clubbing, Other Skin: No rashes, No breakdown Labs LABS Laboratory Tests Test 03/04/17 05:20 Sodium Level 137 mmol/L (136-145) Potassium Level 4.2 mmol/L (3.5-5.1) Chloride Level 101 mmol/L (98-107) Carbon Dioxide Level 29 mmol/L (21-32) Anion Gap 7 (6-14) Blood Urea Nitrogen 15 mg/dL (8-26) Creatinine 1.1 mg/dL (0.7-1.3) Estimated GFR (Cockcroft-Gault) 74.9 BUN/Creatinine Ratio 14 (6-20) Glucose Level 107 mg/dL (70-99) Calcium Level 8.9 mg/dL (8.5-10.1) Total Bilirubin 1.9 mg/dL (0.2-1.0) Aspartate Amino Transf (AST/SGOT) 70 U/L (15-37) Alanine Aminotransferase (ALT/SGPT) 383 U/L (16-63) Alkaline Phosphatase 102 U/L (46-116) Total Protein 7.1 g/dL (6.4-8.2) Albumin 3.3 g/dL (3.4-5.0) Albumin/Globulin Ratio 0.9 (1.0-1.7) Amylase Level 129 U/L (25-115) Lipase 760 U/L (73-393) Review of Systems Review of Systems pain improving no fevers Assessment and Plan Assessmemt and Plan Problems Medical Problems: (1) Cholelithiasis Status: Acute (2) Elevated liver enzymes Status: Acute (3) Vomiting Status: Acute Choledocholithiasis with pancreatitis 1. CT abdomen this am, results pending 2. GI following 3. General Surgery - lap hay planned once pancreatitis resolved 4. Recheck labs in am 5. Appreciate subspecialty input Problems: Comment Review of Relevant I have reviewed the following items willem (where applicable) has been applied. Labs Laboratory Tests Test 03/03/17 04:47 03/03/17 11:35 03/04/17 05:20 White Blood Count 7.5 x10^3/uL (4.0-11.0) Red Blood Count 5.22 x10^6/uL (4.30-5.70) Hemoglobin 16.0 g/dL (13.0-17.5) Hematocrit 45.3 % (39.0-53.0) Mean Corpuscular Volume 87 fL (79-100) Mean Corpuscular Hemoglobin 31 pg (25-35) Mean Corpuscular Hemoglobin Concent 35 g/dL (31-37) Red Cell Distribution Width 13.4 % (11.5-14.5) Platelet Count 189 x10^3/uL (140-400) Neutrophils (%) (Auto) 81 % (31-73) Lymphocytes (%) (Auto) 11 % (24-48) Monocytes (%) (Auto) 8 % (0-9) Eosinophils (%) (Auto) 0 % (0-3) Basophils (%) (Auto) 0 % (0-3) Neutrophils # (Auto) 6.1 x10^3uL (1.8-7.7) Lymphocytes # (Auto) 0.8 x10^3/uL (1.0-4.8) Monocytes # (Auto) 0.6 x10^3/uL (0.0-1.1) Eosinophils # (Auto) 0.0 x10^3/uL (0.0-0.7) Basophils # (Auto) 0.0 x10^3/uL (0.0-0.2) Sodium Level 139 mmol/L (136-145) 137 mmol/L (136-145) Potassium Level 3.9 mmol/L (3.5-5.1) 4.2 mmol/L (3.5-5.1) Chloride Level 102 mmol/L (98-107) 101 mmol/L (98-107) Carbon Dioxide Level 27 mmol/L (21-32) 29 mmol/L (21-32) Anion Gap 10 (6-14) 7 (6-14) Blood Urea Nitrogen 16 mg/dL (8-26) 15 mg/dL (8-26) Creatinine 1.2 mg/dL (0.7-1.3) 1.1 mg/dL (0.7-1.3) Estimated GFR (Cockcroft-Gault) 67.8 74.9 BUN/Creatinine Ratio 13 (6-20) 14 (6-20) Glucose Level 101 mg/dL (70-99) 107 mg/dL (70-99) Calcium Level 8.8 mg/dL (8.5-10.1) 8.9 mg/dL (8.5-10.1) Total Bilirubin 2.8 mg/dL (0.2-1.0) 1.9 mg/dL (0.2-1.0) Aspartate Amino Transf (AST/SGOT) 111 U/L (15-37) 70 U/L (15-37) Alanine Aminotransferase (ALT/SGPT) 562 U/L (16-63) 383 U/L (16-63) Alkaline Phosphatase 121 U/L (46-116) 102 U/L (46-116) Total Protein 7.3 g/dL (6.4-8.2) 7.1 g/dL (6.4-8.2) Albumin 3.7 g/dL (3.4-5.0) 3.3 g/dL (3.4-5.0) Albumin/Globulin Ratio 1.0 (1.0-1.7) 0.9 (1.0-1.7) Lipase 4611 U/L (73-393) 760 U/L (73-393) Prothrombin Time 12.0 SEC (11.7-14.0) Prothromb Time International Ratio 0.9 (0.8-1.1) Amylase Level 129 U/L (25-115) Laboratory Tests Test 03/04/17 05:20 Sodium Level 137 mmol/L (136-145) Potassium Level 4.2 mmol/L (3.5-5.1) Chloride Level 101 mmol/L (98-107) Carbon Dioxide Level 29 mmol/L (21-32) Anion Gap 7 (6-14) Blood Urea Nitrogen 15 mg/dL (8-26) Creatinine 1.1 mg/dL (0.7-1.3) Estimated GFR (Cockcroft-Gault) 74.9 BUN/Creatinine Ratio 14 (6-20) Glucose Level 107 mg/dL (70-99) Calcium Level 8.9 mg/dL (8.5-10.1) Total Bilirubin 1.9 mg/dL (0.2-1.0) Aspartate Amino Transf (AST/SGOT) 70 U/L (15-37) Alanine Aminotransferase (ALT/SGPT) 383 U/L (16-63) Alkaline Phosphatase 102 U/L (46-116) Total Protein 7.1 g/dL (6.4-8.2) Albumin 3.3 g/dL (3.4-5.0) Albumin/Globulin Ratio 0.9 (1.0-1.7) Amylase Level 129 U/L (25-115) Lipase 760 U/L (73-393) Medications Current Medications Ketorolac Tromethamine (Toradol) 30 mg 1X ONCE IV Last administered on 12:19; Start 03/02/17 at 12:15; Stop 03/02/17 at 12:16; Status DC Morphine Sulfate 4 mg 1X ONCE IV Last administered on 03/02/17 12:21; Start 03/02/17 at 12:15; Stop 03/02/17 at 12:16; Status DC Ondansetron HCl (Zofran) 4 mg 1X ONCE IV Last administered on 03/02/17 12:15 ; Start 03/02/17 at 12:15; Stop 03/02/17 at 12:16; Status DC Piperacillin Sod/ Tazobactam Sod 3.375 gm/Sodium Chloride 50 ml @ 100 mls/hr 1X ONCE IV Last administered on 03/02/17 13:50; Start 03/02/17 at 13:45; Stop 03/02/17 at 14:14; Status DC Ondansetron HCl (Zofran) 4 mg PRN Q8HRS PRN IV NAUSEA/VOMITING Last administered on 03/02/17 16:14; Start 03/02/17 at 13:30; Stop 03/03/17 at 13:29 ; Status DC Morphine Sulfate 4 mg PRN Q2HR PRN IV PAIN Last administered on 03/02/17 16:08 ; Start 03/02/17 at 13:30; Stop 03/02/17 at 17:02; Status DC Acetaminophen (Tylenol) 650 mg PRN Q4HRS PRN PO FEVER; Start 03/02/17 at 13:30 ; Stop 03/03/17 at 13:29; Status DC Morphine Sulfate 4 mg 1X ONCE IM ; Start 03/02/17 at 15:15; Stop 03/02/17 at 15 :16; Status DC Famotidine (Pepcid) 20 mg QHS IVP Last administered on 03/03/17 21:05; Start 03/02/17 at 21:00 Piperacillin Sod/ Tazobactam Sod 3.375 gm/Sodium Chloride 50 ml @ 100 mls/hr Q6HRS IV Last administered on 03/04/17 11:40; Start 03/02/17 at 18:00 Fentanyl Citrate (Fentanyl 2ml Vial) 50 mcg PRN Q2HR PRN IV PAIN; Start at 16:45; Stop 03/02/17 at 16:55; Status DC Oxycodone HCl (Roxicodone) 5 mg PRN Q6HRS PRN PO PAIN; Start 03/02/17 at 16:45 Fentanyl Citrate (Fentanyl 2ml Vial) 75 mcg PRN Q2HR PRN IV PAIN Last administered on 03/04/17 08:00; Start 03/02/17 at 17:00 Ketorolac Tromethamine (Toradol) 30 mg PRN Q8HRS PRN IV PAIN Last administered on 03/02/17 18:04; Start 03/02/17 at 17:00; Stop 03/07/17 at 16:59 Potassium Chloride/Dextrose/ Sod Cl 1,000 ml @ 125 mls/hr Q8H IV Last administered on 03/04/17 11:40; Start 03/02/17 at 17:30 Saliva Substitute (Biotene Moisturizing Mouth) 2 spray PRN Q15MIN PRN PO DRY MOUTH; Start 03/02/17 at 17:00 Morphine Sulfate 6 mg PRN Q2HR PRN IV PAIN; Start 03/02/17 at 17:15 Diphenhydramine HCl (Benadryl) 25 mg PRN Q6HRS PRN IVP ITCHING; Start 03/02/17 at 21:30 Ringer's Solution 1,000 ml @ 75 mls/hr [id number] IV ; Start 03/03/17 at 12:30; Stop 03/03/17 at 17:58; Status DC Iohexol (Omnipaque 300 Mg/ml) 100 ml STK-MED ONCE .ROUTE ; Start 03/03/17 at 13: 00; Stop 03/03/17 at 13:13; Status DC Propofol 20 ml @ As Directed STK-MED ONCE IV ; Start 03/03/17 at 13:06; Stop at 13:13; Status DC Lidocaine HCl (Lidocaine Pf 2% Vial) 5 ml STK-MED ONCE .ROUTE ; Start 03/03/17 at 13:13; Stop 03/03/17 at 13:14; Status DC Succinylcholine Chloride (Anectine) 200 mg STK-MED ONCE .ROUTE ; Start 03/03/17 at 13:13; Stop 03/03/17 at 13:14; Status DC Dexamethasone Sodium Phosphate (Decadron) 4 mg STK-MED ONCE .ROUTE ; Start 03/03 at 13:28; Stop 03/03/17 at 13:30; Status DC Iohexol (Omnipaque 350 Mg/ml) 50 ml STK-MED ONCE IV Last administered on 13:35; Start 03/03/17 at 13:35; Stop 03/03/17 at 13:46; Status DC Ondansetron HCl (Zofran) 8 mg PRN Q8HRS PRN IV NAUSEA/VOMITING Last administered on 03/03/17 15:41; Start 03/03/17 at 15:30 Iohexol (Omnipaque 300 Mg/ml) 75 ml 1X ONCE IV Last administered on 03/04/17 08:48; Start 03/04/17 at 07:30; Stop 03/04/17 at 07:31; Status DC Iohexol (Omnipaque 240 Mg/ml) 50 ml 1X ONCE PO Last administered on 03/04/17t 07:40; Start 03/04/17 at 07:30; Stop 03/04/17 at 07:31; Status DC Info (Do NOT chart on this entry -- for MONITORING) 1 each PRN DAILY PRN MC SEE COMMENTS; Start 03/04/17 at 07:30; Stop 03/06/17 at 07:29 Vitals/I & O Vital Sign - Last 24 Hours 03/03/17 03/03/17 03/03/17 03/03/17 12:15 13:49 14:04 14:19 Temp 97 98.8 97.0 98.8 Pulse 73 87 78 83 Resp 18 20 20 20 B/P (MAP) 141/76 128/67 134/66 Pulse Ox 96 94 96 97 O2 Delivery Nasal Cannula Nasal Cannula Room Air O2 Flow Rate 3.0 2.0 03/03/17 03/03/17 03/03/17 03/03/17 15:00 15:19 19:15 22:43 Temp 98.4 98.8 98.9 98.4 98.8 98.9 Pulse 72 70 60 Resp 18 16 16 B/P (MAP) 133/81 (98) 133/78 (96) 103/60 (74) Pulse Ox 92 93 95 O2 Delivery Room Air Room Air Room Air Room Air 03/04/17 03/04/17 03/04/17 03/04/17 02:55 03:25 03:58 07:00 Temp 98.2 98.1 98.2 98.1 Pulse 64 71 Resp 20 20 16 18 B/P (MAP) 129/80 (96) 134/76 (95) Pulse Ox 96 97 O2 Delivery Room Air Room Air Room Air 03/04/17 03/04/17 03/04/17 03/04/17 07:40 08:00 09:55 11:06 Temp 99.0 99.0 Pulse 63 Resp 18 B/P (MAP) 118/70 (86) Pulse Ox 95 O2 Delivery Room Air Room Air Room Air Room Air CONSUELO VARELA III DO Mar 04, 2017 12:07
[2017-03-04 15:00] VITALS: BP 116/72
[2017-03-04 19:00] VITALS: BP 121/87
[2017-03-04] MEDS: FAMOTIDINE 20 MG/2 ML VIAL IVP SCH (21:30)
[2017-03-04 23:00] VITALS: BP 108/68
[2017-03-05] VITALS (8 sets, daily range): BP systolic 132–148; BP diastolic 75–107
[2017-03-05] MEDS: PIPERACILLIN/TAZOBACTAM 3.375 GM in IV NORMAL SALINE 50ML 50 ML IV SCH ×3 (00:02→11:39)
[2017-03-05 04:12] LABS: BASO % 1 % (0-3); EOS % 4 % (0-3); HEMATOCRIT 38.9 % (39.0-53.0); HEMOGLOBIN 13.6 g/dL (13.0-17.5); LYMPH # 1.1 x10^3/uL (1.0-4.8); LYMPH % 21 % (24-48); MEAN CORPUSCULAR HEMOGLOBIN 31 pg (25-35); MEAN CORPUSCULAR HGB CONC 35 g/dL (31-37); MEAN CORPUSCULAR VOLUME 88 fL (79-100); MONO % 10 % (0-9); NEUT % 64 % (31-73); PLATELET COUNT 174 x10^3/uL (140-400); RED BLOOD COUNT 4.45 x10^6/uL (4.30-5.70); RED CELL DISTRIBUTION WIDTH 13.1 % (11.5-14.5); WHITE BLOOD COUNT 5.2 x10^3/uL (4.0-11.0)
[2017-03-05 04:29] LABS: CALCIUM 8.6 mg/dL (8.5-10.1); CREATININE 1.1 mg/dL (0.7-1.3); GFR 74.9; POTASSIUM 3.9 mmol/L (3.5-5.1)
[2017-03-05] MEDS: fentaNYL PF VIAL 100 MCG/2 ML VIAL IV PRN ×3 (05:52→11:39)
[2017-03-05] MEDS ORDERED: LIDOCAINE 1% 1 ML SYRINGE. ID PRN (07:00)
[2017-03-05] MEDS ORDERED: fentaNYL PF VIAL 100 MCG/2 ML VIAL IV PRN (07:00)
[2017-03-05] MEDS ORDERED: MORPHINE SULFATE 2 MG/ML DISP.SYRIN. IV PRN (07:00)
[2017-03-05] MEDS ORDERED: ONDANSETRON PF 4 MG/2 ML VIAL. IV PRN (07:00)
[2017-03-05] MEDS ORDERED: HYDROmorphone 2 MG/ML VIAL IV PRN (07:00)
[2017-03-05] MEDS ORDERED: PROCHLORPERAZINE 10 MG/2 ML VIAL. IV PRN (07:00)
[2017-03-05] MEDS: POTASSIUM CL 20MEQ D5-0.45NACL 1,000 ML IV SCH (07:51)
[2017-03-05] MEDS: IV RINGERS,LACTATED 1000ML 1,000 ML IV SCH ×2 (08:24→11:38)
[2017-03-05] MEDS ORDERED: fentaNYL PF VIAL 250 MCG/5 ML VIAL ONE (09:06)
[2017-03-05] MEDS ORDERED: BUPIVAC MPF-EPI 0.5%-1:200000 30 ML VIAL. ONE (09:27)
[2017-03-05] MEDS ORDERED: SURGICEL HEMOSTAT 4X8 EACH. ONE (09:27)
[2017-03-05] MEDS ORDERED: IOHEXOL 300 MG/ML 50 ML VIAL. ONE (09:28)
[2017-03-05] MEDS ORDERED: PROPOFOL 20 ML IV ONE (09:41)
[2017-03-05] MEDS ORDERED: DEXAMETHASONE SOD PHOS 20 MG/5 ML VIAL. ONE (09:41)
[2017-03-05] MEDS ORDERED: ONDANSETRON PF 4 MG/2 ML VIAL. ONE (09:41)
[2017-03-05] MEDS ORDERED: LIDOCAINE 2% PF Vial for OR 5 ML VIAL. ONE (09:42)
[2017-03-05] MEDS ORDERED: SEVOFLURANE 61 TO 120 MINUTES. IH ONE (09:42)
[2017-03-05] MEDS ORDERED: GLUCAGON,HUMAN RECOMBINANT 1 MG/ML VIAL. ONE (10:14)
[2017-03-05] MEDS ORDERED: GLYCOPYRROLATE 1 MG/5 ML VIAL. ONE (10:39)
[2017-03-05] MEDS ORDERED: NEOSTIGMINE METHYLSULFATE 5 MG/5 ML SYRINGE. ONE (10:39)
--- NOTE | 2017-03-05 10:41 | RAD ---
Examination: Intraoperative cholangiogram History: History of cholecystectomy Comparison: ERCP from 03/03/2017 Findings: Contrast is identified in the cystic duct, intrahepatic bile bile ducts, common bile duct and the pancreatic duct. There is no evidence of contrast extravasation. Questionable filling defects identified in the proximal cystic duct. No obvious filling defects identified within the lumen of the common bile duct. The common bile duct appears mildly dilated. Impression: Fluoroscopy performed during intraoperative cholangiogram. Question filling defects identified in the proximal cystic duct could be air bubbles and less likely stones as these are not visualized on the later images.. No evidence of contrast extravasation. No evidence of filling defects in the common bile duct. The common bile duct appears mildly dilated. Total fluoroscopic time 56 seconds. Total fluoroscopic images 6.
[2017-03-05] MEDS ORDERED: oxyCODONE/APAP 5/325 1 TAB TABLET PO PRN ×2 (11:00)
--- NOTE | 2017-03-05 11:03 | PDOC4 ---
Operative Note Operative Note Operative Note: Preoperative Diagnosis: Gallstone pancreatitis Postoperative Diagnosis: Same Procedure: Laparoscopic cholecystectomy with intraoperative cholangiogram Surgeons: Son Assist: Jolie CURIEL Anesthesia: Gen. Estimated Blood Loss: 50 mL Specimen: Gallbladder to pathology Drains: None Complications: None Indications: The patient is a 36-year-old male who was admitted with abdominal pain. His evaluation is consistent with gallstone pancreatitis. Surgical treatment was offered by means of a laparoscopic cholecystectomy. The risks of surgery were discussed which include bleeding, infection, bile duct injury, bile leak, pain, the potential for additional surgeries or procedures. The patient understands and would like to proceed. Description: The patient was taken to the operating room and laid supine on the operating table. General anesthesia was performed. The abdomen was prepped with ChloraPrep and draped in a standard surgical fashion. A small supraumbilical incision was made with a scalpel. The Veress needle was then inserted and a pneumoperitoneum was then created. A 5 mm trocar was then inserted and the laparoscope was introduced. In the upper midabdomen a 5 mm trocar was inserted and in the right upper quadrant one 5 mm trocar and one 2.3 mm mini lap grasper were inserted. The gallbladder was retracted cephalad. The cystic duct was dissected free from surrounding tissues. One clip was placed on the duct near the gallbladder junction. An opening was made in the duct and a cholangiocatheter placed within and secured with a clip. Using contrast dye and fluoroscopy an intraoperative cholangiogram was performed that appeared unremarkable. The clip and catheter were then withdrawn. Three clips were placed on the cystic duct and it was divided. The cystic artery was then identified, dissected free, doubly clipped and divided as well. The gallbladder was then mobilized away from the liver with cautery. The umbilical 5 millimeter trocar was exchanged for an 11 millimeter trocar. The gallbladder was then placed in an endoscopic bag and extracted at the umbilical trocar site. The fascia there was closed with an 0 Vicryl suture. All blood and irrigation fluid was suctioned and hemostasis was good. The remaining ports were removed and the pneumoperitoneum was relieved. The skin incisions were injected with half percent Marcaine with epinephrine, and all were closed using 4-0 Monocryl suture. Steri-Strips and dressings were then applied. The patient tolerated the procedure well and was sent to the recovery room in stable condition. At the end of the case all counts were correct. LINDA COKER MD Mar 05, 2017 11:03
[2017-03-05] MEDS ORDERED: fentaNYL PF VIAL 100 MCG/2 ML VIAL ONE (11:05)
--- NOTE | 2017-03-05 12:36 | PDOC ---
PROGRESS NOTES Chief Complaint Chief Complaint Choledocholithiasis with pancreatitis PMH: Obesity, BMI 34 History of Present Illness History of Present Illness Pt had lap hay performed today, saw patient in PACU, was bedside. Lipase this am was 418 CT abdomen: pancreas unremarkable, cholelithiasis without acute peritonitis, signoid diverticulosis without acute diverticulitis, left renal cyst Vitals Vitals Vital Signs Date Time Temp Pulse Resp B/P (MAP) Pulse Ox O2 Delivery O2 Flow Rate FiO2 03/05/17 12:11 97.4 51 18 148/81 (103) 96 Room Air 97.4 03/05/17 11:50 2 Physical Exam General: Oriented X3, Cooperative, No acute distress Heart: Regular rate, Normal S1, Normal S2, No murmurs Lungs: Clear, Other (no crackles, no wheezes) Abdomen: Soft, Other (normal appearing abdomen, no bruising) Extremities: No clubbing, Other Skin: No rashes, No breakdown Labs LABS Laboratory Tests Test 03/05/17 03:35 White Blood Count 5.2 x10^3/uL (4.0-11.0) Red Blood Count 4.45 x10^6/uL (4.30-5.70) Hemoglobin 13.6 g/dL (13.0-17.5) Hematocrit 38.9 % (39.0-53.0) Mean Corpuscular Volume 88 fL (79-100) Mean Corpuscular Hemoglobin 31 pg (25-35) Mean Corpuscular Hemoglobin Concent 35 g/dL (31-37) Red Cell Distribution Width 13.1 % (11.5-14.5) Platelet Count 174 x10^3/uL (140-400) Neutrophils (%) (Auto) 64 % (31-73) Lymphocytes (%) (Auto) 21 % (24-48) Monocytes (%) (Auto) 10 % (0-9) Eosinophils (%) (Auto) 4 % (0-3) Basophils (%) (Auto) 1 % (0-3) Neutrophils # (Auto) 3.3 x10^3uL (1.8-7.7) Lymphocytes # (Auto) 1.1 x10^3/uL (1.0-4.8) Monocytes # (Auto) 0.5 x10^3/uL (0.0-1.1) Eosinophils # (Auto) 0.2 x10^3/uL (0.0-0.7) Basophils # (Auto) 0.0 x10^3/uL (0.0-0.2) Sodium Level 137 mmol/L (136-145) Potassium Level 3.9 mmol/L (3.5-5.1) Chloride Level 102 mmol/L (98-107) Carbon Dioxide Level 28 mmol/L (21-32) Anion Gap 7 (6-14) Blood Urea Nitrogen 11 mg/dL (8-26) Creatinine 1.1 mg/dL (0.7-1.3) Estimated GFR (Cockcroft-Gault) 74.9 Glucose Level 108 mg/dL (70-99) Calcium Level 8.6 mg/dL (8.5-10.1) Lipase 418 U/L (73-393) Review of Systems Review of Systems not reporting pain, ROS limited as pt mildly disoriented after anesthesia Assessment and Plan Assessmemt and Plan Problems Medical Problems: (1) Cholelithiasis Status: Acute (2) Elevated liver enzymes Status: Acute (3) Vomiting Status: Acute Gallstone pancreatitis s/p cholecystectomy 1. Pain control per general surgery 2. wound care 3. Advance diet as tolerated 4. recheck labs in am 5. PT/OT Problems: Comment Review of Relevant I have reviewed the following items willem (where applicable) has been applied. Labs Laboratory Tests Test 03/04/17 05:20 03/05/17 03:35 Sodium Level 137 mmol/L (136-145) 137 mmol/L (136-145) Potassium Level 4.2 mmol/L (3.5-5.1) 3.9 mmol/L (3.5-5.1) Chloride Level 101 mmol/L (98-107) 102 mmol/L (98-107) Carbon Dioxide Level 29 mmol/L (21-32) 28 mmol/L (21-32) Anion Gap 7 (6-14) 7 (6-14) Blood Urea Nitrogen 15 mg/dL (8-26) 11 mg/dL (8-26) Creatinine 1.1 mg/dL (0.7-1.3) 1.1 mg/dL (0.7-1.3) Estimated GFR (Cockcroft-Gault) 74.9 74.9 BUN/Creatinine Ratio 14 (6-20) Glucose Level 107 mg/dL (70-99) 108 mg/dL (70-99) Calcium Level 8.9 mg/dL (8.5-10.1) 8.6 mg/dL (8.5-10.1) Total Bilirubin 1.9 mg/dL (0.2-1.0) Aspartate Amino Transf (AST/SGOT) 70 U/L (15-37) Alanine Aminotransferase (ALT/SGPT) 383 U/L (16-63) Alkaline Phosphatase 102 U/L (46-116) Total Protein 7.1 g/dL (6.4-8.2) Albumin 3.3 g/dL (3.4-5.0) Albumin/Globulin Ratio 0.9 (1.0-1.7) Amylase Level 129 U/L (25-115) Lipase 760 U/L (73-393) 418 U/L (73-393) White Blood Count 5.2 x10^3/uL (4.0-11.0) Red Blood Count 4.45 x10^6/uL (4.30-5.70) Hemoglobin 13.6 g/dL (13.0-17.5) Hematocrit 38.9 % (39.0-53.0) Mean Corpuscular Volume 88 fL (79-100) Mean Corpuscular Hemoglobin 31 pg (25-35) Mean Corpuscular Hemoglobin Concent 35 g/dL (31-37) Red Cell Distribution Width 13.1 % (11.5-14.5) Platelet Count 174 x10^3/uL (140-400) Neutrophils (%) (Auto) 64 % (31-73) Lymphocytes (%) (Auto) 21 % (24-48) Monocytes (%) (Auto) 10 % (0-9) Eosinophils (%) (Auto) 4 % (0-3) Basophils (%) (Auto) 1 % (0-3) Neutrophils # (Auto) 3.3 x10^3uL (1.8-7.7) Lymphocytes # (Auto) 1.1 x10^3/uL (1.0-4.8) Monocytes # (Auto) 0.5 x10^3/uL (0.0-1.1) Eosinophils # (Auto) 0.2 x10^3/uL (0.0-0.7) Basophils # (Auto) 0.0 x10^3/uL (0.0-0.2) Laboratory Tests Test 03/05/17 03:35 White Blood Count 5.2 x10^3/uL (4.0-11.0) Red Blood Count 4.45 x10^6/uL (4.30-5.70) Hemoglobin 13.6 g/dL (13.0-17.5) Hematocrit 38.9 % (39.0-53.0) Mean Corpuscular Volume 88 fL (79-100) Mean Corpuscular Hemoglobin 31 pg (25-35) Mean Corpuscular Hemoglobin Concent 35 g/dL (31-37) Red Cell Distribution Width 13.1 % (11.5-14.5) Platelet Count 174 x10^3/uL (140-400) Neutrophils (%) (Auto) 64 % (31-73) Lymphocytes (%) (Auto) 21 % (24-48) Monocytes (%) (Auto) 10 % (0-9) Eosinophils (%) (Auto) 4 % (0-3) Basophils (%) (Auto) 1 % (0-3) Neutrophils # (Auto) 3.3 x10^3uL (1.8-7.7) Lymphocytes # (Auto) 1.1 x10^3/uL (1.0-4.8) Monocytes # (Auto) 0.5 x10^3/uL (0.0-1.1) Eosinophils # (Auto) 0.2 x10^3/uL (0.0-0.7) Basophils # (Auto) 0.0 x10^3/uL (0.0-0.2) Sodium Level 137 mmol/L (136-145) Potassium Level 3.9 mmol/L (3.5-5.1) Chloride Level 102 mmol/L (98-107) Carbon Dioxide Level 28 mmol/L (21-32) Anion Gap 7 (6-14) Blood Urea Nitrogen 11 mg/dL (8-26) Creatinine 1.1 mg/dL (0.7-1.3) Estimated GFR (Cockcroft-Gault) 74.9 Glucose Level 108 mg/dL (70-99) Calcium Level 8.6 mg/dL (8.5-10.1) Lipase 418 U/L (73-393) Medications Current Medications Ketorolac Tromethamine (Toradol) 30 mg 1X ONCE IV Last administered on 12:19; Start 03/02/17 at 12:15; Stop 03/02/17 at 12:16; Status DC Morphine Sulfate 4 mg 1X ONCE IV Last administered on 03/02/17 12:21; Start 03/02/17 at 12:15; Stop 03/02/17 at 12:16; Status DC Ondansetron HCl (Zofran) 4 mg 1X ONCE IV Last administered on 03/02/17 12:15 ; Start 03/02/17 at 12:15; Stop 03/02/17 at 12:16; Status DC Piperacillin Sod/ Tazobactam Sod 3.375 gm/Sodium Chloride 50 ml @ 100 mls/hr 1X ONCE IV Last administered on 03/02/17 13:50; Start 03/02/17 at 13:45; Stop 03/02/17 at 14:14; Status DC Ondansetron HCl (Zofran) 4 mg PRN Q8HRS PRN IV NAUSEA/VOMITING Last administered on 03/02/17 16:14; Start 03/02/17 at 13:30; Stop 03/03/17 at 13:29 ; Status DC Morphine Sulfate 4 mg PRN Q2HR PRN IV PAIN Last administered on 03/02/17 16:08 ; Start 03/02/17 at 13:30; Stop 03/02/17 at 17:02; Status DC Acetaminophen (Tylenol) 650 mg PRN Q4HRS PRN PO FEVER; Start 03/02/17 at 13:30 ; Stop 03/03/17 at 13:29; Status DC Morphine Sulfate 4 mg 1X ONCE IM ; Start 03/02/17 at 15:15; Stop 03/02/17 at 15 :16; Status DC Famotidine (Pepcid) 20 mg QHS IVP Last administered on 03/04/17 21:30; Start at 21:00 Piperacillin Sod/ Tazobactam Sod 3.375 gm/Sodium Chloride 50 ml @ 100 mls/hr Q6HRS IV Last administered on 03/05/17 11:39; Start 03/02/17 at 18:00 Fentanyl Citrate (Fentanyl 2ml Vial) 50 mcg PRN Q2HR PRN IV PAIN; Start at 16:45; Stop 03/02/17 at 16:55; Status DC Oxycodone HCl (Roxicodone) 5 mg PRN Q6HRS PRN PO PAIN; Start 03/02/17 at 16:45 Fentanyl Citrate (Fentanyl 2ml Vial) 75 mcg PRN Q2HR PRN IV PAIN Last administered on 03/05/17 05:52; Start 03/02/17 at 17:00 Ketorolac Tromethamine (Toradol) 30 mg PRN Q8HRS PRN IV PAIN Last administered on 03/02/17 18:04; Start 03/02/17 at 17:00; Stop 03/07/17 at 16:59 Potassium Chloride/Dextrose/ Sod Cl 1,000 ml @ 125 mls/hr Q8H IV Last administered on 03/04/17 21:30; Start 03/02/17 at 17:30 Saliva Substitute (Biotene Moisturizing Mouth) 2 spray PRN Q15MIN PRN PO DRY MOUTH; Start 03/02/17 at 17:00 Morphine Sulfate 6 mg PRN Q2HR PRN IV PAIN; Start 03/02/17 at 17:15 Diphenhydramine HCl (Benadryl) 25 mg PRN Q6HRS PRN IVP ITCHING; Start 03/02/17 at 21:30 Ringer's Solution 1,000 ml @ 75 mls/hr [id number] IV ; Start 03/03/17 at 12:30; Stop 03/03/17 at 17:58; Status DC Iohexol (Omnipaque 300 Mg/ml) 100 ml STK-MED ONCE .ROUTE ; Start 03/03/17 at 13: 00; Stop 03/03/17 at 13:13; Status DC Propofol 20 ml @ As Directed STK-MED ONCE IV ; Start 03/03/17 at 13:06; Stop at 13:13; Status DC Lidocaine HCl (Lidocaine Pf 2% Vial) 5 ml STK-MED ONCE .ROUTE ; Start 03/03/17 at 13:13; Stop 03/03/17 at 13:14; Status DC Succinylcholine Chloride (Anectine) 200 mg STK-MED ONCE .ROUTE ; Start 03/03/17 at 13:13; Stop 03/03/17 at 13:14; Status DC Dexamethasone Sodium Phosphate (Decadron) 4 mg STK-MED ONCE .ROUTE ; Start 03/03 at 13:28; Stop 03/03/17 at 13:30; Status DC Iohexol (Omnipaque 350 Mg/ml) 50 ml STK-MED ONCE IV Last administered on 13:35; Start 03/03/17 at 13:35; Stop 03/03/17 at 13:46; Status DC Ondansetron HCl (Zofran) 8 mg PRN Q8HRS PRN IV NAUSEA/VOMITING Last administered on 03/03/17 15:41; Start 03/03/17 at 15:30 Iohexol (Omnipaque 300 Mg/ml) 75 ml 1X ONCE IV Last administered on 03/04/17 08:48; Start 03/04/17 at 07:30; Stop 03/04/17 at 07:31; Status DC Iohexol (Omnipaque 240 Mg/ml) 50 ml 1X ONCE PO Last administered on 03/04/17 07:40; Start 03/04/17 at 07:30; Stop 03/04/17 at 07:31; Status DC Info (Do NOT chart on this entry -- for MONITORING) 1 each PRN DAILY PRN MC SEE COMMENTS; Start 03/04/17 at 07:30; Stop 03/06/17 at 07:29 Ondansetron HCl (Zofran) 4 mg PRN Q6HRS PRN IV NAUSEA/VOMITING; Start 03/05/17 at 07:00; Stop 03/06/17 at 06:59 Fentanyl Citrate (Fentanyl 2ml Vial) 25 mcg PRN Q5MIN PRN IV MILD PAIN; Start 03/05/17 at 07:00; Stop 03/06/17 at 06:59 Fentanyl Citrate (Fentanyl 2ml Vial) 50 mcg PRN Q5MIN PRN IV MODERATE PAIN Last administered on 03/05/17 11:39; Start 03/05/17 at 07:00; Stop 03/06/17 at 06: 59 Morphine Sulfate 1 mg PRN Q10MIN PRN IV SEVERE PAIN; Start 03/05/17 at 07:00; Stop 03/06/17 at 06:59 Ringer's Solution 1,000 ml @ 0 mls/hr Q0M IV Last administered on 03/05/17 11: 38; Start 03/05/17 at 07:00; Stop 03/05/17 at 18:59 Lidocaine HCl 2 ml PRN 1X PRN ID PRIOR TO IV START; Start 03/05/17 at 07:00; Stop 03/06/17 at 06:59 Hydromorphone HCl (Dilaudid) 0.5 mg PRN Q10MIN PRN IV SEV PAIN, Second choice; Start 03/05/17 at 07:00; Stop 03/06/17 at 06:59 Prochlorperazine Edisylate (Compazine) 5 mg PACU PRN PRN IV NAUSEA, MRX1; Start 03/05/17 at 07:00; Stop 03/06/17 at 06:59 Fentanyl Citrate (Fentanyl 5ml Vial) 250 mcg STK-MED ONCE .ROUTE ; Start at 09:06; Stop 03/05/17 at 09:07; Status DC Cellulose 1 each STK-MED ONCE .ROUTE ; Start 03/05/17 at 09:27; Stop 03/05/17 at 09:28; Status DC Bupivacaine HCl/ Epinephrine Bitart (Sensorcain-Mpf Epi 0.5%-[id number]) 30 ml STK -MED ONCE .ROUTE Last administered on 03/05/17 09:52; Start 03/05/17 at 09:27; Stop 03/05/17 at 09:28; Status DC Iohexol (Omnipaque 300 Mg/ml) 50 ml STK-MED ONCE .ROUTE Last administered on 09:52; Start 03/05/17 at 09:28; Stop 03/05/17 at 09:29; Status DC Dexamethasone Sodium Phosphate (Decadron) 20 mg STK-MED ONCE .ROUTE ; Start 03/05 at 09:41; Stop 03/05/17 at 09:42; Status DC Ondansetron HCl (Zofran) 4 mg STK-MED ONCE .ROUTE ; Start 03/05/17 at 09:41; Stop 03/05/17 at 09:42; Status DC Propofol 20 ml @ As Directed STK-MED ONCE IV ; Start 03/05/17 at 09:41; Stop 03/05 at 09:42; Status DC Lidocaine HCl (Lidocaine Pf 2% Vial) 5 ml STK-MED ONCE .ROUTE ; Start 03/05/17 at 09:42; Stop 03/05/17 at 09:43; Status DC Sevoflurane (Ultane) 60 ml STK-MED ONCE IH ; Start 03/05/17 at 09:42; Stop at 09:43; Status DC Glucagon (Glucagen) 1 mg STK-MED ONCE .ROUTE ; Start 03/05/17 at 10:14; Stop 03/05 at 10:15; Status DC Glycopyrrolate (Robinul) 1 mg STK-MED ONCE .ROUTE ; Start 03/05/17 at 10:39; Stop 03/05/17 at 10:40; Status DC Neostigmine Methylsulfate 5 mg STK-MED ONCE .ROUTE ; Start 03/05/17 at 10:39; Stop 03/05/17 at 10:40; Status DC Oxycodone/ Acetaminophen (Percocet 5/325) 1 tab PRN Q4HRS PRN PO PAIN; Start at 11:00 Oxycodone/ Acetaminophen (Percocet 5/325) 2 tab PRN Q4HRS PRN PO PAIN; Start at 11:00 Fentanyl Citrate (Fentanyl 2ml Vial) 100 mcg STK-MED ONCE .ROUTE ; Start at 11:05; Stop 03/05/17 at 11:06; Status DC Vitals/I & O Vital Sign - Last 24 Hours 03/04/17 03/04/17 03/04/17 03/04/17 15:00 15:14 19:00 19:31 Temp 98.8 100.2 98.8 100.2 Pulse 73 73 Resp 18 18 B/P (MAP) 116/72 (87) 121/87 (98) Pulse Ox 95 98 O2 Delivery Room Air Room Air Room Air Room Air 03/04/17 03/04/17 03/05/17 03/05/17 20:10 23:00 03:00 05:52 Temp 99.9 99.3 99.9 99.3 Pulse 55 58 Resp 18 18 20 B/P (MAP) 108/68 (81) 133/75 (94) Pulse Ox 98 95 O2 Delivery Room Air Room Air Room Air Room Air 03/05/17 03/05/17 03/05/17 03/05/17 06:22 07:45 07:47 08:09 Temp 98.6 97.9 98.6 97.9 Pulse 55 60 Resp 20 18 16 B/P (MAP) 132/86 (101) 144/85 Pulse Ox 98 O2 Delivery Room Air Room Air Room Air Room Air O2 Flow Rate 97.0 03/05/17 03/05/17 03/05/17 03/05/17 10:54 10:54 11:08 11:11 Temp 97.4 97.4 Pulse 47 49 Resp 20 20 18 B/P (MAP) 146/72 159/80 Pulse Ox 96 97 100 O2 Delivery Nasal Cannula Nasal Cannula Nasal Cannula Nasal Cannula O2 Flow Rate 4 4 4.0 4 03/05/17 03/05/17 03/05/17 03/05/17 11:26 11:39 11:41 11:50 Pulse 47 49 Resp 20 20 20 B/P (MAP) 159/85 155/79 Pulse Ox 97 97 98 O2 Delivery Nasal Cannula Nasal Cannula Nasal Cannula O2 Flow Rate 4 2.0 2 2 03/05/17 03/05/17 11:56 12:11 Temp 97.3 97.4 97.3 97.4 Pulse 47 51 Resp 20 18 B/P (MAP) 154/78 148/81 (103) Pulse Ox 99 96 O2 Delivery Room Air Room Air Intake and Output 03/05/17 03/05/17 03/06/17 15:00 23:00 07:00 Intake Total 2050 ml Output Total 200 ml Balance 1850 ml CONSUELO VARELA III DO Mar 05, 2017 12:36
--- NOTE | 2017-03-07 12:10 | DS ---
DATE OF DISCHARGE: 03/05/2017 ADMISSION DIAGNOSIS: Gallstones. DISCHARGE DIAGNOSIS: Postoperative laparoscopic cholecystectomy. HOSPITAL COURSE: The patient is a pleasant 36-year-old male who presented with symptomatic gallstones. He was admitted. We consulted general surgery. He was taken for a laparoscopic cholecystectomy. Post-procedure, he did well. We discharged to home. DISPOSITION: Home. ACTIVITY: As tolerated. DIET: Low sodium. MEDICATIONS: Please see the MRAD. TOTAL TIME: 32 minutes. CONSUELO VARELA DO DR: JAVIER/gerard JOB#: [id number] / [id number]
== END 2017-03-05 15:35 | disposition home or self-care (01) | DRG 417 ==
LOC: ER 11:29 → 4 NORTH 13:29
PROVIDERS: ADMIT Internal Medicine; ATTEND Internal Medicine
PROC: 0FT44ZZ Resection of Gallbladder, Percutaneous Endoscopic Approach (ICD-10-PCS; principal; 2017-03-04)
PROC: BF121ZZ Fluoroscopy of Gallbladder using Low Osmolar Contrast (ICD-10-PCS; 2017-03-04)
DX: K80.62 Calculus of gallbladder and bile duct with acute cholecystitis without obstruction (principal); K85.10 Biliary acute pancreatitis without necrosis or infection; K76.0 Fatty (change of) liver, not elsewhere classified; K91.89 Other postprocedural complications and disorders of digestive system; E66.9 Obesity, unspecified; K21.9 Gastro-esophageal reflux disease without esophagitis; Y83.6 Removal of other organ (partial) (total) as the cause of abnormal reaction of the patient, or of later complication, without mention of misadventure at the time of the procedure; Z68.34 Body mass index [BMI] 34.0-34.9, adult
CPT/HCPCS: 36415; 74177; 74300; 74328; 80048; 80053; 82150; 83690; 85025; 85610; 96365; 96375; C1726; C1757; J0330; J1100; J1610; J1885; J2270; J2405; J2543; J2704; J2710; J3010; J3490; J7120; Q9966; Q9967; S0028; 99285-25; J2001